=== PATIENT | male | born 1965 | race Caucasian/White ===

== ENCOUNTER 2021-12-20 06:46 | Outpatient (REF) | payer OTHER, SELFPAY ==
[2021-12-20 06:52] LABS: MANUAL DIFF FLAG NO
[2021-12-20 07:19] LABS: Basophils Percent Auto 0.4 % (0-2); Eosinophils Absolute Auto 0.2 X10*3/uL (0.0-0.4); Eosinophils Percent Auto 2.6 % (0-4); Hematocrit 42.8 % (42.0-52.0); Hemoglobin 15.1 g/dl (14.0-18.0); Imm Gran Abs Auto 0.03 X10*3/uL (0.00-0.03); Imm Gran Pct Auto 0.4 % (0.0-0.4); Lymphocytes Absolute Auto 2.2 X10*3/uL (1.2-4.9); Lymphocytes Percent Auto 31.9 % (20-40); Mean Corpuscular HGB Conc 35.3 g/dl (31.0-36.0); Mean Corpuscular Volume 90.7 fL (80.0-98.0); Monocytes Absolute Auto 0.5 X10*3/uL (0.1-1.2); Monocytes Percent Auto 7.6 % (2-11); Neutrophils Percent Auto 57.1 % (45-73); Platelet Count 141 X10*3/uL (160-400); Red Blood Count 4.72 X10*6/uL (4.60-5.80); Red Cell Distribution Width 11.9 % (11.0-16.0)
[2021-12-20 07:45] LABS: Alanine Aminotransferase 57 U/L (0-40); Alkaline Phosphatase 59 U/L (39-117); Anion Gap 12 (12-20); Aspartate Amino Transferase 43 U/L (5-37); Bilirubin Total 0.3 mg/dL (0.0-1.0); Blood Urea Nitrogen 15 mg/dL (9-16); Calcium 8.9 mg/dL (8.4-10.2); Carbon Dioxide 30 mmol/L (22-29); Chloride 102 mmol/L (96-108); Cholesterol 180 mg/dL; Estimated Glomerular Filt Rate > 60; Glucose Fasting 115 mg/dL (60-99); HDL Cholesterol 44 mg/dL; LDL Cholesterol Calculated 110 mg/dl; Potassium 3.3 mmol/L (3.3-5.1); Sodium 141 mmol/L (135-145); Total Protein 6.8 g/dL (6.5-8.0); Triglycerides 133 mg/dL
[2021-12-20 08:06] LABS: Thyroid Stimulating Hormone 3.25 uIU/mL (0.32-4.0); Vitamin D 25-OH Total 33.4 ng/mL (>30)
== END 2021-12-20 06:47 | disposition home or self-care (01) ==
LOC: HO.LAB 06:46
PROVIDERS: PCP Internal Medicine; Visit Provider Internal Medicine
DX: Z00.00 Encounter for general adult medical examination without abnormal findings (principal); Z12.5 Encounter for screening for malignant neoplasm of prostate; K22.4 Dyskinesia of esophagus; R00.0 Tachycardia, unspecified; E78.00 Pure hypercholesterolemia, unspecified; E66.09 Other obesity due to excess calories; Z68.37 Body mass index [BMI] 37.0-37.9, adult
CPT/HCPCS: 36415; 80053; 80061; 82306; 84153; 84443; 85025

== ENCOUNTER 2022-01-21 10:05 | Outpatient (REF) | payer OTHER, SELFPAY ==
[2022-01-21 11:32] LABS: Alanine Aminotransferase 41 U/L (0-40); Albumin Level 4.1 g/dL (3.5-5.0); Alkaline Phosphatase 66 U/L (39-117); Anion Gap 14 (12-20); Aspartate Amino Transferase 29 U/L (5-37); Bilirubin Direct 0.2 mg/dL (0.0-0.5); Bilirubin Total 0.4 mg/dL (0.0-1.0); Blood Urea Nitrogen 11 mg/dL (9-16); C Reactive Protein 0.47 mg/dL (< or = 0.50); Calcium 9.4 mg/dL (8.4-10.2); Carbon Dioxide 30 mmol/L (22-29); Chloride 101 mmol/L (96-108); Estimated Glomerular Filt Rate > 60; Glucose Random 130 mg/dL (60-115); Potassium 3.6 mmol/L (3.3-5.1); Sodium 141 mmol/L (135-145)
[2022-01-21 11:39] LABS: Erythrocyte Sedimentation Rate 9 MM/HR (0-15)
== END 2022-01-21 10:06 | disposition home or self-care (01) ==
LOC: HO.LAB 10:05
PROVIDERS: PCP Internal Medicine; Visit Provider Internal Medicine
DX: R61 Generalized hyperhidrosis (principal)
CPT/HCPCS: 80048; 80076; 85652; 86140

== ENCOUNTER 2023-01-31 06:55 | Outpatient (REF) | payer OTHER, SELFPAY ==
[2023-01-31 07:07] LABS: MANUAL DIFF FLAG NO
[2023-01-31 07:14] LABS: Basophils Percent Auto 0.3 % (0-2); Eosinophils Absolute Auto 0.2 X10*3/uL (0.0-0.4); Eosinophils Percent Auto 2.6 % (0-4); Hematocrit 44.9 % (42.0-52.0); Hemoglobin 15.7 g/dl (14.0-18.0); Imm Gran Abs Auto 0.04 X10*3/uL (0.00-0.03); Imm Gran Pct Auto 0.5 % (0.0-0.4); Lymphocytes Absolute Auto 2.3 X10*3/uL (1.2-4.9); Lymphocytes Percent Auto 29.9 % (20-40); Mean Corpuscular Hemoglobin 31.5 pg (27.0-33.0); Mean Corpuscular Volume 90.2 fL (80.0-98.0); Mean Platelet Volume 8.9 fL (9.4-12.4); Monocytes Absolute Auto 0.5 X10*3/uL (0.1-1.2); Monocytes Percent Auto 6.7 % (2-11); Neutrophils Absolute Auto 4.5 x10*3/uL (2.0-8.3); Platelet Count 147 X10*3/uL (160-400); Red Blood Count 4.98 X10*6/uL (4.60-5.80); Red Cell Distribution Width 12.2 % (11.0-16.0); White Blood Count 7.6 X10*3/uL (4.8-10.8)
[2023-01-31 07:37] LABS: Alanine Aminotransferase 65 U/L (0-40); Alkaline Phosphatase 59 U/L (39-117); Anion Gap 17 (12-20); Aspartate Amino Transferase 35 U/L (5-37); Bilirubin Total 0.4 mg/dL (0.0-1.0); Blood Urea Nitrogen 14 mg/dL (9-16); Calcium 9.6 mg/dL (8.4-10.2); Carbon Dioxide 26 mmol/L (22-29); Chloride 104 mmol/L (96-108); Cholesterol 168 mg/dL (<200); Estimated Glomerular Filt Rate > 60; Glucose Fasting 121 mg/dL (60-99); HDL Cholesterol 41 mg/dL (>40); LDL Cholesterol Calculated 103 mg/dL (<100); Potassium 3.7 mmol/L (3.3-5.1); Sodium 143 mmol/L (135-145); Triglycerides 121 mg/dL (<150)
[2023-01-31 07:53] LABS: Thyroid Stimulating Hormone 4.98 uIU/mL (0.32-4.0); Vitamin D 25-OH Total 44.8 ng/mL (>30)
[2023-01-31 07:54] LABS: Prostate Specific Antigen 0.49 ng/mL (<0.05-4.0)
== END 2023-01-31 06:56 | disposition home or self-care (01) ==
LOC: HO.LAB 06:55
PROVIDERS: PCP Internal Medicine; Visit Provider Internal Medicine
DX: Z00.00 Encounter for general adult medical examination without abnormal findings (principal); Z12.5 Encounter for screening for malignant neoplasm of prostate; R00.0 Tachycardia, unspecified; E78.00 Pure hypercholesterolemia, unspecified; E66.09 Other obesity due to excess calories; K22.4 Dyskinesia of esophagus; I10 Essential (primary) hypertension
CPT/HCPCS: 36415; 80053; 80061; 82306; 84153; 84443; 85025

== ENCOUNTER 2023-06-28 08:10 | Outpatient (REF) | payer OTHER, SELFPAY ==
[2023-06-28 09:44] LABS: Alanine Aminotransferase 57 U/L (0-40); Alkaline Phosphatase 62 U/L (39-117); Anion Gap 12 (12-20); Aspartate Amino Transferase 38 U/L (5-37); Bilirubin Total 0.3 mg/dL (0.0-1.0); Blood Urea Nitrogen 12 mg/dL (9-16); Carbon Dioxide 30 mmol/L (22-29); Chloride 105 mmol/L (96-108); Estimated Glomerular Filt Rate > 60; Glucose Random 105 mg/dL (60-115); Potassium 3.6 mmol/L (3.3-5.1); Sodium 143 mmol/L (135-145); Total Protein 7.1 g/dL (6.5-8.0)
[2023-06-28 10:01] LABS: Thyroid Stimulating Hormone 3.73 uIU/mL (0.32-4.0)
== END 2023-06-28 08:11 | disposition home or self-care (01) ==
LOC: HO.LAB 08:10
PROVIDERS: PCP Internal Medicine; Visit Provider Internal Medicine
DX: K58.1 Irritable bowel syndrome with constipation (principal)
CPT/HCPCS: 36415; 80053; 84443

== ENCOUNTER 2023-07-21 11:42 | Emergency (ER) | payer OTHER, SELFPAY ==
--- NOTE | ~2023-07-21 | XR_ITS ---
EXAMINATION: XR CHEST CLINICAL INFORMATION: Palpitations COMPARISON: 07/09/2019 TECHNIQUE: 2 views of the chest were obtained. FINDINGS: No significant abnormality is noted involving the heart, lungs, mediastinum, bony thorax or soft tissues. Mild degenerative changes are again seen in the spine. XR/XR chest 2V IMPRESSION: Unremarkable examination.
[2023-07-21 12:02] VITALS: BP 158/83; PULSE 65; RESP 18; TEMP 36.6; O2SAT 96; BMI 33.7
--- NOTE | 2023-07-21 12:05 | ED_ITS ---
HPI - General Adult General Chief complaint: General Medical Stated complaint: Sent by PCP - high BP Time Seen by Provider: 07/21/23 12:48 Source: patient and family Mode of arrival: ambulatory Limitations: no limitations History of Present Illness HPI narrative: Patient is a 58 year old male with a history of HTN and HLD presenting to the ED after an isolated incident of palpitations which lasted 20 minutes. The patient reported the incident occurred at around 3 am and endorsed associated dizziness/lightheadedness and SOB during the incident. Patient denies pain but describes the feeling a fluttering . Patient reports drinking about 4-6 beers with his friends the evening before the palpitations started. Denies visual disturbances, headaches, fever/chills, abdominal pain, chest pain, urinary symptoms, and changes to bowel habits. Patient reports hes been compliant with all of his meds, denies sick contacts, recent travel, and recent ABX use. MD complaint: Palpitations Onset (ago): hour(s) (10) Location: chest Radiation: non-radiation Severity: mild Severity scale (1-10): 2 Quality: other (pounding) Pain Consistency: now resolved Relieving factors: none Exacerbating factors: none Associated symptoms: shortness of breath Treatments prior to arrival: none Related Data Allergies Allergy/AdvReac Type Severity Reaction Status Date / Time SEASONAL ALLERGIES Allergy Mild WATERY Uncoded 07/21/23 12:01 EYES,NASAL CONGESTION.SNEEZING Review of Systems 2 Review of Systems: Yes all other systems are reviewed and are negative Constitutional: Constitutional: Reports no additional constitutional complaints, Denies body ache(s), Denies chills, Denies fatigue, Denies fever(s) and Denies headache(s) Eyes: Eyes: Reports no additional eye complaints, Denies blurry vision, Denies change in vision, Denies diplopia and Denies loss of vision ENT: Denies Normal hearing present and Denies headache(s) Cardiovascular: Cardiovascular: Reports no additional cardiovascular complaints, Denies chest pain, Reports leg edema, Reports lightheadedness, Denies Loss of Consciousness, Reports palpitations and Reports dyspnea Respiratory: Respiratory: Reports no additional respiratory complaints, Denies hemoptysis and Reports dyspnea Gastrointestinal: Gastrointestinal: Reports no additional gastrointestinal complaints, Denies abdominal pain, Denies melena, Denies hematochezia and Denies coffee ground emesis Genitourinary: Genitourinary: Reports no additional male genitourinary complaints, Denies hematuria, Denies difficulty urinating and Denies dysuria Musculoskeletal: Musculoskeletal: Reports no additional musculoskeletal complaints, Denies back pain, Denies myalgias, Denies numbness and Denies tingling Neurologic: Denies Normal hearing present, Denies headache(s), Denies loss of vision, Denies numbness and Denies tingling Psychiatric: Psychiatric: Reports no additional psychiatric complaints Endocrine: Endocrine: Denies fatigue and Reports palpitations Hematologic/Lymphatic: Hematologic/Lymphatic: Reports no additional hematologic/lymphatic complaints Allergic/Immunologic: Allergic/Immunologic: Reports no additional allergic/immunologic complaints [facility] Past Medical History Attestation statement: The following information was validated with the patient. Source: old records reviewed and nursing notes reviewed Social History Social History Advance Directives: No Physical Exam ED Vital Signs: Vital Signs - 24 hr 07/21/23 12:02 07/21/23 15:15 07/21/23 15:17 Temperature 97.8 F 97.6 F 97.6 F Pulse Rate 65 50 50 Respiratory Rate 18 16 16 Blood Pressure 158/83 H 119/69 133/73 Pulse Oximetry 96 97 97 Oxygen Delivery Method Room Air Room Air 07/21/23 15:24 07/21/23 15:24 07/21/23 15:25 Temperature Pulse Rate 55 61 59 Respiratory Rate Blood Pressure 145/80 H 155/90 H 143/81 H Pulse Oximetry Oxygen Delivery Method BMI result Body Mass Index 33.7 VSS Appearance: Alert.? Oriented X3.? No acute distress.? Head: Normocephalic, atraumatic, no step-offs or deformities Eyes: Pupils equal, round and reactive to light.? Neck: Normal inspection.? Neck supple.? CVS: Normal heart rate and rhythm.? Pulses normal.? Respiratory: No respiratory distress.? Breath sounds normal.? Abdomen: Soft and nontender.? Skin: Skin warm and dry.? Normal skin color.? Normal skin turgor.? Extremities: + 1 + pitting from knee down to b/l LE.? No calf ttp. 5/5 strength to bilateral upper and lower extremities Neuro: Oriented X 3.? No motor deficit.? No sensory deficit. CN 2-12 intact Const General: cooperative, no acute distress, alert and awake Nutritional Appearance: obese Orientation/consciousness: patient oriented x3 Limitations: no limitations HENMT Head: Yes normal to inspection Ears: hearing grossly normal bilaterally General nose exam: Normal external nose present Face and sinus: Yes normal facial exam Eyes General: appearance normal, both eyes and all related structures Pupils: Equal, round and reactive pupils present Neck Neck: Yes normal visual inspection Resp Effort & Inspection: normal respiratory effort and able to speak in complete sentences Auscultation: clear to auscultation bilaterally Cardio Jugular venous distension: no JVD Palpation: normal PMI Rate: regular rate Rhythm: regular rhythm Neuro General: patient oriented x3 Cranial nerves: Yes Equal, round and reactive pupils present and No Normal hearing present Cognition (Neuro): normal cognition Coordination: [id number] test normal NIH Stroke Scale Level of Consciousness Questions: Answers both questions correctly Level of Consciousness Commands: Performs both tasks correctly Best Gaze: Normal Visual: No visual loss Facial Palsy: Normal Motor Arm (Right): No drift Motor Arm (Left): No drift Limb Ataxia: Absent Best Language: No aphasia Course Course Course Narrative: RME performed by Suzan Morel PA-C. Patient is a 58 year old assigned male at presenting to the emergency department with now resolved heart racing. Detailed physical exam and review of systems are deferred to the primary school teacher librarian. Labs, imaging, and swabs ordered. Patient placed back in the waiting room pending room availability and results. Reevaluation(s) Reevaluation #1: CBC unremarkable. Chemistry no acute findings requiring intervention. Slightly elevated transaminases at baseline. Negative troponin, and BNP. EKG nonischemic. D-dimer negative. Flu/COVID/RSV negative. Second trop pending Ortho static vital signs pendign Time: 15:18 Medical Decision Making Medical Decision Making [facility] Narrative: 1252 58 year old male presents w/ palpitations, and dizziness as aswell as high blood pressure since yesterday. PE- benign hx and pe concerning for possible anxiety vs dysrythmia vs electrolyte abnormalities. Unlikely acs, pe, dissection, ards, stroke, posterior stroke. Unlikely hypertensive urgency or emergency. Plan- labs, imaging viral test. Differential Diagnosis Differential Diagnoses: The differential diagnosis associated with the presentation includes hx and pe concerning for possible anxiety vs dysrythmia vs electrolyte abnormalities. Unlikely acs, pe, dissection, ards, stroke, posterior stroke. Unlikely hypertensive urgency or emergency. Admission/Observation Consideration of admission/observation: Escalation of care including admission/observation considered Lab Data MDM Lab Attestation statement: I reviewed the patient's lab results. 07/21/23 13:09 07/21/23 13:09 Labs: Lab Results 07/21/23 07/21/23 Range/Units 13:09 15:21 WBC 6.8 (4.8-10.8) X10*3/uL RBC 4.88 (4.60-5.80) X10*6/uL Hgb 15.3 (14.0-18.0) g/dl Hct 43.3 (42.0-52.0) % MCV 88.7 (80.0-98.0) fL MCH 31.4 (27.0-33.0) pg MCHC 35.3 (31.0-36.0) g/dl RDW 12.3 (11.0-16.0) % Plt Count 127 L (160-400) X10*3/uL MPV 8.8 L (9.4-12.4) fL Immature Gran % (Auto) 0.3 (0.0-0.4) % Neut % (Auto) 64.7 (45-73) % Lymph % (Auto) 25.4 (20-40) % [place] % (Auto) 7.8 (2-11) % Eos % (Auto) 1.5 (0-4) % Baso % (Auto) 0.3 (0-2) % Lymph # (Auto) 1.7 (1.2-4.9) X10*3/uL [place] # (Auto) 0.5 (0.1-1.2) X10*3/uL Eos # (Auto) 0.1 (0.0-0.4) X10*3/uL Baso # (Auto) 0.0 (0.0-0.2) X10*3/uL Abs Immat Gran (auto) 0.02 (0.00-0.03) X10*3/uL Absolute Neuts (auto) 4.4 (2.0-8.3) x10*3/uL Absolute Nucleated RBC 0.000 (0.0-0.012) X10*3/uL Nucleated RBC % (auto) 0.0 (0.0-0.2) /100WBC D-Dimer High Sensitivty < 150 NG/ML Sodium 142 (135-145) mmol/L Potassium 3.4 (3.3-5.1) mmol/L Chloride 102 (96-108) mmol/L Carbon Dioxide 32 H (22-29) mmol/L Anion Gap 11 L (12-20) BUN 13 (9-16) mg/dL Creatinine 0.89 (0.5-1.4) mg/dL Estim Creat Clear Calc 127.5 Estimated GFR > 60 Random Glucose 111 (60-115) mg/dL Calcium 9.4 (8.4-10.2) mg/dL Magnesium 2.0 (1.6-2.6) mg/dL Total Bilirubin 0.6 (0.0-1.0) mg/dL AST 40 H (5-37) U/L ALT 58 H (0-40) U/L Alkaline Phosphatase 65 (39-117) U/L Troponin I High Sens < 2.7 < 2.7 (<3.5-35.0) ng/L B-Natriuretic Peptide < 10 (<100) pg/mL Total Protein 7.1 (6.5-8.0) g/dL Albumin 3.9 (3.5-5.0) g/dL Urine Color Yellow Urine Appearance Clear Urine pH 7.5 (5.0-9.0) Ur Specific [place] 1.020 (1.005-1.025) Urine Protein Negative (Neg-Trace) mg/dL Urine Glucose (UA) Negative (Negative) mg/dL Urine Ketones Negative (Negative) mg/dL Urine Blood Negative (Negative) Urine Nitrite Negative (Negative) Ur Leukocyte Esterase Negative (Negative) Influenza Type A (PCR) NEGATIVE (Negative) Influenza Type B (PCR) NEGATIVE (Negative) RSV RNA Qual (PCR) NEGATIVE (Negative) SARS-CoV-2 RNA (RT-PCR) NEGATIVE (Negative) Independent Interpretation I performed an independent interpretation of an: EKG (Ventricular rate of 58, CT normal, QRS normal, QT/QTC normal. EKG with sinus bradycardia incomplete right bundle-branch block,) and Plain X-Ray (XR/XR chest 2V IMPRESSION: Unremarkable examination. ) Radiology Impression Discussion of test interpretation with radiology: I have reviewed the radiologist's reading. Independent Historian Clinical information obtained from an independent historian. History obtained from or confirmed by: Other (son ) External Record Review External record reviewed: Inpatient record, Office record, Outpatient record, Prior outpatient labs, Prior outpatient radiology, Primary care record and Outside ED record Chronic Conditions Patient?s care impacted by: Other (HTN, HLD ) Critical Care Time Critical Care Time Critical Care Time: Yes Total Critical Care Time: 35 Attestation: I attest to this time spent taking care of the patient, obtaining history, physical, reviewing labs, imaging Discharge Plan Discharge Clinical Impression: Chest pain, Heart palpitations, Bradycardia Patient Disposition: Home, Self-Care Instructions: Chest Pain (DC), Heart Palpitations (ED) Additional Instructions: Take your medications as prescribed. If you were prescribed antibiotics today, it is important that you take your medication to their entirety, do not skip any doses, do not finish them early. Follow-up with your primary care provider this week. Return to the emergency department with new or worsening symptoms. Such as fevers, chills, chest pain, shortness of breath, nausea, vomiting, dizziness, headache, vision changes, lethargy In case of emergency call 911 Please follow-up with cardiology. Referrals: [facility] – [place] Cardiovascular Services [Provider Group] - 1 day [place] Church DO [Primary Care Provider] - 2 days Stand Alone Forms: Work/School Release
--- NOTE | 2023-07-21 12:06 | ECG_ITS ---
Test Reason : PALPITATIONS Blood Pressure : / mmHG Vent. Rate : 058 BPM Atrial Rate : 058 BPM P-R Int : 178 ms QRS Dur : 100 ms QT Int : 448 ms P-R-T Axes : 039 -26 047 degrees QTc Int : 439 ms Artifact in tracing Sinus bradycardia Incomplete right bundle branch block Minimal voltage criteria for LVH, may be normal variant ( R in aVL ) Nonspecific T wave abnormality Abnormal ECG When compared with ECG of 30-SEP-2019 13:55, No significant changes seen Referred By: Suzan Morel Electronically Signed By:SARIAH TEJADA
[2023-07-21 13:18] LABS: MANUAL DIFF FLAG NO
[2023-07-21 13:19] LABS: Basophils Percent Auto 0.3 % (0-2); Eosinophils Absolute Auto 0.1 X10*3/uL (0.0-0.4); Eosinophils Percent Auto 1.5 % (0-4); Hematocrit 43.3 % (42.0-52.0); Hemoglobin 15.3 g/dl (14.0-18.0); Imm Gran Abs Auto 0.02 X10*3/uL (0.00-0.03); Imm Gran Pct Auto 0.3 % (0.0-0.4); Lymphocytes Absolute Auto 1.7 X10*3/uL (1.2-4.9); Lymphocytes Percent Auto 25.4 % (20-40); Mean Corpuscular HGB Conc 35.3 g/dl (31.0-36.0); Mean Corpuscular Hemoglobin 31.4 pg (27.0-33.0); Mean Corpuscular Volume 88.7 fL (80.0-98.0); Mean Platelet Volume 8.8 fL (9.4-12.4); Monocytes Absolute Auto 0.5 X10*3/uL (0.1-1.2); Monocytes Percent Auto 7.8 % (2-11); Neutrophils Absolute Auto 4.4 x10*3/uL (2.0-8.3); Neutrophils Percent Auto 64.7 % (45-73); Platelet Count 127 X10*3/uL (160-400); Red Blood Count 4.88 X10*6/uL (4.60-5.80); Red Cell Distribution Width 12.3 % (11.0-16.0); White Blood Count 6.8 X10*3/uL (4.8-10.8)
[2023-07-21 13:29] LABS: D Dimer High Sensitivity < 150 NG/ML
[2023-07-21 13:32] LABS: Alanine Aminotransferase 58 U/L (0-40); Albumin Level 3.9 g/dL (3.5-5.0); Alkaline Phosphatase 65 U/L (39-117); Anion Gap 11 (12-20); Aspartate Amino Transferase 40 U/L (5-37); Bilirubin Total 0.6 mg/dL (0.0-1.0); Blood Urea Nitrogen 13 mg/dL (9-16); Calcium 9.4 mg/dL (8.4-10.2); Carbon Dioxide 32 mmol/L (22-29); Chloride 102 mmol/L (96-108); Creatinine Clr Calc Pharmacy 127.5; Estimated Glomerular Filt Rate > 60; Glucose Random 111 mg/dL (60-115); Potassium 3.4 mmol/L (3.3-5.1); Sodium 142 mmol/L (135-145); Total Protein 7.1 g/dL (6.5-8.0)
[2023-07-21 13:41] LABS: Troponin-I High Sensitivity < 2.7 ng/L (<3.5-35.0)
[2023-07-21 14:05] LABS: Influenza A PCR NEGATIVE (Negative); Influenza B PCR NEGATIVE (Negative); Resp Syncy Virus RNA Qual PCR NEGATIVE (Negative); SARS COV2 PCR INHOUSE NEGATIVE (Negative)
[2023-07-21 14:36] LABS: B Type Natriuretic Peptide < 10 pg/mL (<100)
[2023-07-21 15:15] VITALS: BP 119/69; PULSE 50; RESP 16; TEMP 36.4; O2SAT 97
[2023-07-21 15:17] VITALS: BP 133/73; PULSE 50; RESP 16; TEMP 36.4; O2SAT 97
[2023-07-21 15:24] VITALS: BP 145/80; BP 155/90; PULSE 55; PULSE 61
[2023-07-21 15:25] VITALS: BP 143/81; PULSE 59
[2023-07-21 15:29] LABS: Appearance Urine Clear; Color Urine Yellow; Glucose Urine UA Negative (Negative); Leukocyte Esterase Urine Negative (Negative); Nitrite Urine Negative (Negative); PH 7.5 (5.0-9.0); Urine Blood Negative (Negative); Urine Ketones Negative (Negative); Urine Protein Negative (Neg-Trace)
[2023-07-21 15:55] LABS: Troponin-I High Sensitivity < 2.7 ng/L (<3.5-35.0)
[2023-07-21 16:14] VITALS: BP 143/81; PULSE 59; RESP 18; TEMP 36.4; O2SAT 98
== END 2023-07-21 16:15 | disposition home or self-care (01) ==
PROVIDERS: Physician Assistant; Physician Assistant Medical; Emergency Provider Emergency Medicine; PCP Internal Medicine
DX: R00.2 Palpitations (principal); R07.9 Chest pain, unspecified; R00.1 Bradycardia, unspecified; I10 Essential (primary) hypertension; Z11.52 Encounter for screening for COVID-19; Z20.828 Contact with and (suspected) exposure to other viral communicable diseases
CPT/HCPCS: 0241U; 36415; 71046; 80053; 81003; 83735; 83880; 84484; 85025; 85379; 93005; 99283; 99284

== ENCOUNTER → 2023-07-21 12:06 | Outpatient (BNV) | payer OTHER, SELFPAY | PROVIDERS: Emergency Provider Emergency Medicine; PCP Internal Medicine; Visit Provider Internal Medicine | DX: R00.2 Palpitations (principal) | CPT/HCPCS: 93010 ==

== ENCOUNTER 2023-07-25 13:55 | Outpatient (AMB) | payer OTHER, SELFPAY ==
[2023-07-25 14:03] VITALS: BP 130/78; PULSE 76; BMI 29.0
--- NOTE | 2023-07-25 14:03 | A.OFFVIS_ITS ---
Intake Vital Signs 07/25/23 14:03 Height 6 ft 3 in Weight 231 lb 14.821 oz BMI 29.0 BP 130/78 Blood Pressure Location Lt brachial Position Sitting Pulse 76 Intake Visit Reasons: S/P ED; Sxs w palpitations. Holter? HS Intake Note: PT had SOB the day before but no palpitations or chest pain Allergies SEASONAL ALLERGIES Allergy (Mild, Uncoded 07/25/23 14:17) WATERY EYES,NASAL CONGESTION.SNEEZING Medication List - Last Reconciled 07/25/23 by Ana Hanson NP diclofenac sodium 75 mg PO BID dicyclomine 20 mg PO DAILY diphenhydramine HCl (Benadryl) 25 mg PO TID PRN hydrochlorothiazide 50 mg PO DAILY metoprolol succinate ER 100 mg PO DAILY simvastatin 20 mg PO BEDTIME HPI HPI Comments History of Present Illness Details 58-year-old male presents today for a ne w patient visit. He recently went to the emergency room due to waking up and having palpitations and noted to have a high blood pressure of 170/90 checked by his son who is a nurse. He reports he woke up at felt his heart racing, felt lightheaded, and sweaty. Episode lasted about 15 minutes and resolved. He checked his blood pressure periodically throughout the day and it was 150 systolic. He called his PCPs office which recommended for him to be see at the ED. He was bradycardic at 50 bpm while in the emergecy room. He reports many years ago he had palpitations but those resolved. He has a RAJESH for tachycardia prior that showed Sinus Rhythm with occasional PVCs. He denies any chest pains, syncope, or shortness of breath. No other episodes of dizziness other than that episode. He reports no significant history for himself or family cardiac history. He [facility] Medical History (Updated 07/25/23 @ 15:44 by Ana Hanson NP) GERD (gastroesophageal reflux disease) Hypothyroid Hypercholesteremia Review of Systems Const Denies weakness ENT Denies dizziness Card Denies chest pain, Denies chest pain with activity, Denies syncope, Denies rapid heart rate, Denies pedal edema, Denies edema, Denies leg edema, Denies lightheadedness, Denies palpitations, Denies dyspnea, Denies dyspnea on exertion and Denies orthopnea Resp Denies cough, Denies dyspnea and Denies dyspnea on exertion GI Denies hematochezia and Denies change in stool character Musc Denies abnormal gait, Denies muscle cramps, Denies muscle weakness, Denies numbness, Denies radiating pain into limb and Denies tingling Neuro Denies abnormal gait, Denies dizziness, Denies syncope, Denies numbness, Denies tingling and Denies weakness Endo Denies palpitations Physical Exam Vital Signs: Last Vital Signs Pulse 76 07/25/23 14:03 BP 130/78 07/25/23 14:03 BMI result Body Mass Index 29.0 Const General: healthy appearing and no acute distress Orientation/consciousness: patient oriented x3 HEENT Head: Yes normal to inspection Eyes General: appearance normal, both eyes and all related structures Neck Neck: Yes normal visual inspection Chest Chest palpation & inspection: normal inspection of the chest Resp Effort & Inspection: normal respiratory effort Auscultation: clear to auscultation bilaterally Cardio Jugular venous distension: no JVD Palpation: normal PMI Rate: regular rate Rhythm: regular rhythm Heart sounds: S1 normal heart sound present, S2 normal heart sound present, no click, no gallops, no murmurs and no rubs GI Inspection: Yes normal to inspection Palpation (GI): Soft to palpation Skin General skin exam: no rashes or lesions noted Neuro General: patient oriented x3 Extrem General: Yes normal to inspection Psych Appearance: grossly normal Assessment & Plan Assessment & Plan (1) Heart palpitations: Code(s): R00.2 - Palpitations (2) Hypertension: Code(s): I10 - Essential (primary) hypertension Plan Will order echocardiogram to assess for structural changes. Will get holter monitor to assess for arrhtyhmias and assess average heart rates. Heart rate and blood pressure acceptable today. TSH in the ED was 3.73. Hgb and Hct were within normal limis in ED also. His PCP follows thyroid levels. Avoidance of stimulants such as coffee, tea, chocolate. Orders: Orders ECG 3 day holter monitor Today R00.2 - Palpitations CA echo transthoracic complete Today I10 - Essential (primary) hypertension Coding Level of Care Code New Pt Level 3 (31031) Diagnoses Heart palpitations R00.2 Hypertension I10
== END 2023-07-25 14:32 | disposition home or self-care (01) ==
PROVIDERS: PCP Internal Medicine; Visit Provider Nurse Practitioner
DX: R00.2 Palpitations (principal); I10 Essential (primary) hypertension
CPT/HCPCS: 99203

== ENCOUNTER → 2023-07-25 13:55 | Outpatient (BNVA) | payer OTHER, SELFPAY | PROVIDERS: PCP Internal Medicine; Visit Provider Nurse Practitioner ==

== ENCOUNTER → 2023-08-14 13:53 | Outpatient (REF) | payer OTHER, SELFPAY ==
--- NOTE | 2023-08-14 13:57 | CA_ITS ---
Transthoracic Echocardiogram Patient (Last, First, Middle): Ponce Chen R Gender: Male Date of : 1965 Age: 58 Procedure Date: 08/14/2023 Procedure Type: Transthoracic Echocardiogram Location: OP Height: 190.5 cm Weight: 120.2 kg BSA: 2.47 m2 Heart Rate: bpm BP: 148 / 80 mmHg Market Research Analyst: TO Referring MD: Ana Hanson NP Symptoms: I10 - Essential (primary) hypertension Study Quality: Fair/Contrast Conclusions: - Normal left ventricular size, thickness, systolic function, and wall motion. The visually estimated ejection fraction is between 60-65%. - Mildly increased right ventricular cavity size. There is normal right ventricular systolic function. - The right atrium is mildly dilated. - There is mild dilatation of the sinuses of Valsalva measuring 4.17 cm and mild dilatation of the ascending aorta measuring 3.80 cm. Findings Procedure Information Contrast agent, definity, is being given per protocol without apparent complications. Left Ventricle Normal left ventricular size, thickness, systolic function, and wall motion. The visually estimated ejection fraction is between 60-65%. Abnormal diastolic function is noted. Spectral Doppler is indicative of an impaired relaxation filling pattern. E/E prime ratio is between 8 and 15 consistent with indeterminate filling pressures. Right Ventricle Mildly increased right ventricular cavity size. There is normal right ventricular systolic function. Atria The left atrium is normal in size. The right atrium is mildly dilated. Aortic Valve Normal aortic valve structure and function. There is no aortic valve stenosis. There is no aortic valve regurgitation. Mitral Valve The mitral valve appears normal. There is no mitral valve regurgitation. There is no mitral valve stenosis. Pulmonic Valve The pulmonic valve is likely normal. Tricuspid Valve Normal tricuspid valve structure. There is trace tricuspid valve regurgitation. Normal right atrial pressure. There is no evidence of pulmonary hypertension. Great Vessels There is mild dilatation of the sinuses of Valsalva measuring 4.17 cm and mild dilatation of the ascending aorta measuring 3.80 cm. The visualized portions of the pulmonary artery and branches are normal. Venous The inferior vena cava is normal in size and collapses greater than 50% with inspiration. Pericardium/Pleural There is no evidence of pericardial effusion. Prior Study Comparison Changes noted compared to prior study dated: 08/02/2019. RV size mildly dilated. Mild dilation of sinus of valsalva and ascending aorta. Measurements 2D Linear Measurements IVSd: 1.00 0.6-0.9/0.6-1.0 cm LVIDd: 5.25 3.9-5.3/4.2-5.9 cm LVIDd Index: 2.13 2.4-3.2/2.2-3.1 cm/m2 LVIDs: 3.40 2.0-3.6 cm LVPWd: 1.03 0.7-1.1 cm LA Diam: 3.60 2.7-3.8/3.0-4.0 cm LAIDs Index: 1.46 1.5-2.3 cm/m2 LV Mass: 250.11 67-162/88-224 g LV Mass Index: 101.26 43-95/49-115 g/m2 LVOT Diam: 2.20 3.0+(-)1.3 cm 2D Systolic Function EF 4C: 62.40 >55% EF 2C: 67.80 >55% EF BiP: 64.80 >55% Mitral Valve MV Pk E: 0.88 MV PK A: 0.79 MV Decel Time: 186.00 E/A: 1.10 E'Lateral: 7.18 E'Medial: 5.55 E/E' Med: 15.90 E/E' Lat: 12.30 PHT: 54.00 MVA PHT: 4.07 Decel [place]: 4.75 Aortic Valve AoV Pk Lakhwinder: 1.59 AoV Mn Lakhwinder: 1.00 AoV VTI: 0.31 AoV Pk Grad: 10.00 Aov Mn Grad: 5.00 JUSTINE Cont.VTI: 3.56 LVOT LVOT Pk Lakhwinder: 1.26 LVOT Mn Lakhwinder: 0.75 LVOT VTI: 0.29 LVOT Pk Grad: 6.00 LVOT Mn Grad: 3.00 LVOT Diam: 2.20 LVOT Area: 3.80 Diastolic Function MV Pk E: 0.88 MV Pk A: 0.79 E/A: 1.10 E'Medial: 5.55 E/E' Med: 15.90 E' Laterial: 7.18 E/E' Lat: 12.30 Right Ventricle TAPSE (mm): 27.20 TVS' Lakhwinder: 13.50 Tricuspid Valve TR Pk Lakhwinder: 2.01 TR Pk Grad: 16.00 RA Press: 3.00 RVSP: 19.00 Great Vessels Aorta Sinus of Valsalva: 4.17 2.0-3.[address] [place]: 3.07 1.7-3.4 cm Ao Asc: 3.80 2.1-3.4 cm Ao Arch: 3.20 Updated in Other Vendor System with Status of Final Paco Warren MD electronically signed on 08/14/2023 7:39:21 PM with status of Final
--- NOTE | 2023-08-14 13:57 | HM_ITS ---
Conclusion: 1. Patient was monitored for total period of 3 days 2. Baseline was normal sinus rhythm with average heart of 64 beats per minute 3. No significant arrhythmias or pauses noted 4. No patient reported events MTDD
== END ==
LOC: HO.CARD 13:53
PROVIDERS: PCP Internal Medicine; Visit Provider Nurse Practitioner
DX: R00.2 Palpitations (principal); I10 Essential (primary) hypertension
CPT/HCPCS: 93242; 93306; Q9957

== ENCOUNTER → 2023-08-14 13:57 | Outpatient (BNV) | payer OTHER, SELFPAY | PROVIDERS: PCP Internal Medicine; Visit Provider Internal Medicine Cardiovascular Disease | DX: R00.1 Bradycardia, unspecified (principal) | CPT/HCPCS: 93244; 93306 ==

== ENCOUNTER 2024-03-24 07:56 | Outpatient (REF) | payer BC, SELFPAY | END 2024-03-24 07:57 | disposition home or self-care (01) | LOC: HO.HOSX 07:56 | DX: M79.641 Pain in right hand (principal) | CPT/HCPCS: 73130 ==

== ENCOUNTER 2024-03-24 14:56 | Outpatient (AMB) | payer BC, SELFPAY ==
--- NOTE | 2024-03-24 15:04 | MHC.OFFVIS ---
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 Pt states his thumb started hurting a few months ago with no known injury. Pt denies any locking, numbness, or tingling in his hand or fingers. Pt denies any previous surgeries or injections in his hand or fingers. Allergies SEASONAL ALLERGIES Allergy (Mild, Uncoded 03/24/24 15:04) WATERY EYES,NASAL CONGESTION.SNEEZING HPI Comments Details: Patient is a 59-year-old male who presents for evaluation of right thumb pain, particularly in the MCP joint and IP joint of the right thumb, ongoing for many years. The patient states that he has been told he has significant arthritis in his thumb, and that there is not much to be done, although he would like to explore any potential treatment options available. Patient denies any numbness or tingling in the right hand. No other acute complaints or concerns at this time. [facility] Medical History (Updated 03/24/24 @ 19:01 by NABEEL Harrington) GERD (gastroesophageal reflux disease) Hypothyroid Hypercholesteremia Physical Exam Extrem Other: Patient is alert, oriented, and in no acute distress. Neuro: Normal sensation of the tips of all digits of the right hand at this time Vascular: Cap refill brisk Pain: Patient reports no tenderness to palpation of the basal joint, MCP joint, or IP joint of the right thumb Patient does report discomfort with range of motion of the right thumb, particularly in the MCP and IP joints ROM: Patient is able to make a closed fist and extend all digits of the right hand fully, but reports some discomfort and thumb when doing so Skin: No lacerations or abrasions. General: No ecchymosis, erythema, or evidence of infection. Psych: Appears grossly normal Affect normal Attitude cooperative Results Reviewed Results Reviewed: X-rays obtained in the office today and independently reviewed by me, Edin Rae PA-C, demonstrate moderate to severe arthritic changes of the MCP joint of the right thumb, as well as [id number] arthritic changes of the IP joint. Assessment & Plan Assessment & Plan (1) Osteoarthritis of right thumb: Code(s): M18.11 - Unilateral primary osteoarthritis of first carpometacarpal joint, right hand Category: Medical Plan 1. Right thumb osteoarthritis Patient is educated about this condition Patient is educated about the treatment options available, namely bracing, occupational therapy, and conservative pain management measures The patient does not feel that occupational therapy will benefit him much, but is open to bracing and [id number]-[id number] pain medication Patient is provided with a comfort cool thumb spica splint to be worn with daytime activities and while the thumb was particularly bothering him The patient is also educated on conservative pain management measures, such as rest, ice, elevation, [id number] pain medication, and turmeric is a natural anti-inflammatory Patient states understanding of this and is amenable to this plan Patient will follow-up as needed with any acute concerns Orders: Orders XR hand RT min 3V Today M79.641 - Pain in right hand Coding Level of Care Code New Pt Level 3 (38977) Diagnoses Osteoarthritis of right thumb M18.11
== END 2024-03-24 15:30 | disposition home or self-care (01) ==
PROVIDERS: PCP Internal Medicine
DX: M18.11 Unilateral primary osteoarthritis of first carpometacarpal joint, right hand (principal)
CPT/HCPCS: 99203

== ENCOUNTER 2024-06-29 14:55 | Outpatient (AMB) | payer BC, SELFPAY ==
--- NOTE | 2024-06-29 14:59 | A.OFFPC_ITS ---
Vital Signs 06/29/24 15:12 Height 6 ft 0.5 in Weight 274 lb BMI 36.6 BP 148/76 H Blood Pressure Location Rt brachial Pulse 58 Pulse Source Pulse Oximeter Temp 96.8 F Pulse Oximetry (%) 96 Intake Visit Reasons: 6 month follow up Intake Note: went to urgent care a few weeks ago for sinuses, androlled left jodie on Thanksgiving and was having a hard time sleeping at night, has a cough at night and by right jaw bome sees a lump not tender to tough Allergies SEASONAL ALLERGIES Allergy (Mild, Uncoded 06/29/24 15:38) WATERY EYES,NASAL CONGESTION.SNEEZING Medication List - Last Reconciled 06/29/24 by Lan Lee MD dicyclomine 20 mg PO DAILY diphenhydramine HCl (Benadryl) 25 mg PO TID PRN hydrochlorothiazide 50 mg PO DAILY metoprolol succinate ER 100 mg PO DAILY simvastatin 20 mg PO BEDTIME 90 days [facility] Medical History (Updated 06/29/24 @ 15:44 by Lan Lee MD) Class 2 severe obesity with body mass index (BMI) of 35 to 39.9 with serious comorbidity GERD (gastroesophageal reflux disease) Hypothyroid Hypercholesteremia Physical exam (Primary Care) Vital Signs: Last Vital Signs Temp 96.8 F 06/29/24 15:12 Pulse 58 06/29/24 15:12 BP 148/76 H 06/29/24 15:12 Pulse Ox 96 06/29/24 15:12 BMI result Body Mass Index 36.6 Coding Level of Care Code Est Pt Level 4 (07711) Complex EM visit Add On G2211 Diagnoses Hypertension I10 Upper respiratory tract infection J06.9 Class 2 severe obesity with body mass index (BMI) of 35 to 39.9 with serious comorbidity E66.812; E66.01 Assessment & Plan Assessment & Plan (1) Hypertension: Code(s): I10 - Essential (primary) hypertension Category: Medical Plan: Blood pressure is in range. Continue current medications. Blood work has been ordered. Will call with results. (2) Upper respiratory tract infection: Code(s): J06.9 - Acute upper respiratory infection, unspecified Plan: Patient was advised to take Benadryl and Sudafed. He has persistent postnasal drip after a recent upper respiratory tract infection. Symptoms should subside. (3) Class 2 severe obesity with body mass index (BMI) of 35 to 39.9 with serious comorbidity: Code(s): E66.812 - Obesity, class 2; E66.01 - Morbid (severe) obesity due to excess calories Category: Medical Plan: His lower limb venous insufficiency is due to excessive weight. Patient was advised the importance of diet and exercise and urged to lose weight aggressively. Plan History of Present Illness The patient is a 59-year-old male presenting with sinus symptoms and ankle pain. Approximately three weeks prior, he visited urgent care due to sinus issues and an ankle injury sustained from rolling his ankle on Thanksgiving. The treatment at urgent care included an inhaler, antibiotics, and steroids. However, he had concerns as his lungs were not examined, and there was no further evaluation of the ankle. The sinus symptoms persist, with nocturnal post-nasal drip leading to cough. Sinus issues have not resolved with prior interventions, and there is a need for further evaluation. Regarding the ankle injury, the patient was initially referred to an quality improvement specialist and ultimately consulted a ad operations specialist due to insurance directives. An X-ray was performed, revealing no fractures, but significant ankle pain persists, resulting in the patient wearing a brace. 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 The patient also reports a history of swollen feet and legs, which improved after wearing compression socks upon his PA student daughter's suggestion. Additionally, blood pressure readings were noted to be elevated at 160, with previous readings around 148. 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 - Noted improvement in lower extremity swelling with compression socks, as observed by his daughter who is a PA student - Engages in tasks requiring prolonged standing and physical labor Review of Systems - Respiratory: Reports nocturnal cough; denies history of asthma - Cardiovascular: Swelling in feet and legs - Musculoskeletal: Persistent ankle pain - Hematologic/Lymphatic: Previously swollen lymph node, now resolved Physical Exam General: Cooperative and healthy appearing Nutritional Appearance: Well nourished Orientation/consciousness: Patient oriented x3 Limitations: No limitations Head: Normal to inspection General: Appearance normal, both eyes and all related structures Neck: Normal visual inspection Chest: Normal palpation of entire chest wall Respiratory: Normal respiratory effort Neurology: Patient oriented x3 Results - Imaging: Ankle X-ray showed no fractures Plan - Further evaluation of persistent sinus symptoms for appropriate management - Continuation of ankle support with brace; consider follow-up with ad operations specialist if pain persists - Obtain updated blood work, including A1c, to assess glucose levels - Monitor blood pressure and consider antihypertensive therapy as needed Patient was informed and verbally consented to the use of an ambient scribe for clinic note documentation during this visit. Discussion Notes During the visit, we discussed management options for the patient's sinusitis, including the need for ongoing treatment and potential adjustments depending on symptom progression. The patient expressed dissatisfaction with prior care regarding his ankle injury, and it is important to ensure appropriate follow-up if ankle pain continues. We also discussed the significance of monitoring blood pressure, given its recent elevation, and the steps that may be needed to manage hypertension. Follow-up laboratory work will help to determine if there are any underlying chronic conditions that need addressing, such as diabetes or metabolic concerns. Patient agrees to plan and will contact if symptoms worsen or additional issues arise. Patient Instructions - Continue wearing compression socks to manage leg swelling - Maintain use of ankle brace for support; follow up if pain persists - Monitor blood pressure regularly; report significant increases - Return if sinus symptoms do not improve or if additional concerns develop - Complete blood tests as discussed, including A1c level Orders: Orders Complete Blood Count no Diff Today I10 - Essential (primary) hypertension Lipid Panel Today I10 - Essential (primary) hypertension Liver Panel Today I10 - Essential (primary) hypertension Hemoglobin A1c Today I10 - Essential (primary) hypertension Basic Metabolic Panel Today I10 - Essential (primary) hypertension Thyroid Stimulating Hormone Today I10 - Essential (primary) hypertension UA and rflx microscopic Today I10 - Essential (primary) hypertension
[2024-06-29 15:12] VITALS: BP 148/76; PULSE 58; TEMP 36; O2SAT 96; BMI 36.6
--- OUTSIDE RECORDS SUMMARY | 2024-06-29 18:42 | XMS_ITS | Patient Health Record ---
[facility] Address [address] [facility] [place] [address] Care Team Providers Care Extrusion Die Coordinator Name Role Phone Chico Church MD Primary Care Provider Unavail able Mckenna Rodriguez Unavailable [phone] Tiffanie Edmond Unavailable [phone] Allergies No Known Allergies Reason For Referral No Information Medications Medication SIG (Take, Route, Fr equency, Duration) Notes Start Date End Date Status Dicyclomine HCl Acti ve Medrol lisa 4mg as directed orally a s directed for 6 days 06/22/2024 Active Ammonium Lactate 12 % 1 application Exte rnally to affected areas of dry skin to feet except for between the toes Twice a day for 30 days Act ledy hydroCHLOROthiazide Active Walking Boot/Pneumatic As directed Wear Daily for Until further notice 06/22/2024 Active Terbinafine HCl 250 MG 1 tablet Orally O nce a day for 30 days 04/20/2024 Active Metoprolol Succinate Active Simvastatin Active Social History Tobacco Use: Social History Observation Description Date Details (start date - stop date) Never Smoker NA - NA Tobacco use other than smoking: Question Answer Notes Are you an other tobacco user? No Tobacco Control (Standard) Question Answer Notes Tobacco use: Nonsmoker Additional Findings: Tobacco non-user Current no nsmoker AUDIT-C (Standard) Question Answer Notes Did you have a drink contain ing alcohol in the past year? Yes How often did you have six o r more drinks on one occasion in the past year? Less than monthly (1 point) How many drinks did you have on a typical day when you were drinking in the past year? 1 or 2 drinks (0 point) How often did you have a dri nk containing alcohol in the past year? Monthly or less (1 point) Points 2 Interpretation Negative Vital Signs Blood pressure diastolic 80 mm Hg 06/22/2024 Height 6ft3in in 06/22/2024 Blood pressure systolic 130 mm Hg 06/22/2024 Weight 270 lbs 06/22/2024 BMI 33.74 kg/m2 06/22/2024 Encounters Encounter Location Date Provider Diagnosis [address] [address] 04/08/2024 Mckenna Rodriguez Pain in right toe(s) M79.674 ; Onychomycosis B35.1 ; Pain in left toe(s) M79.675 and Xerosis of skin L85.[address] [address] 06/22/2024 Tiffanie Feli Acute left ankle jose m n M25.572 ; Sprain of anterior talofibular ligament of left ankle, initial encounter S93.492A ; Sprain of calcaneofibular ligament of left ankle, initial encounter S93.412A and Strain of peroneal tendon of left foot, initial encounter S86.312A [address] [address] 03/26/2024 Mckenna Rodriguez [address] [address] 04/20/2024 Mckenna Rodriguez Assessments Encounter Date Diagnosis (ICD Code) Assessment Notes Treatment Notes Treatment Clinical Notes Section Notes 04/08/2024 Pain in right toe(s) (ICD-10 - M79.674) 04/08/2024 Onychomycosis (ICD-10 - B35.1) 06/22/2024 Acute left ankle pain (ICD-10 - M25.572) 06/22/2024 Sprain of anterior talofibular ligament of left ankle, initial encounter (ICD-10 - S93.492A) Dx New problem, Prognosis Uncertain (4) 04/08/2024 Pain in left toe(s) (ICD-10 - M79.675) 06/22/2024 Sprain of calcaneofibular ligament of left ankle, initial encounter (ICD-10 - S93.412A) Dx New problem, Prognosis Uncertain (4) 04/08/2024 Xerosis of skin (ICD-10 - L85.3) 06/22/2024 Strain of peroneal tendon of left foot, initial encounter (ICD-10 - S86.312A) Dx New problem, Prognosis Uncertain (4) Plan Of Treatment Pending Test Test Name Order Date X ray : Ankle, left 3V 06/22/2024 *Liver Function Test (LFT) 04/08/2024 X ray : Foot, left 3V 06/22/2024 Next Appt Details Provider Name:Tiffanie cano, 07/21/2024 10:30:00 AM, [address] [place] [address], [phone], Provider Name:Mckenna edwards, 08/18/2024 03:30:00 PM, [address] [place] [address], [phone], Insurance Providers Payer Name Payer Address Payer Phone Subscriber Number Group Number Insured Name Patient Relationship to Insured Coverage Start Date Coverage End Date [facility] [address] [place] [address] [phone] [id number] Ponce Chen Self - patient is the insured Medical (General) History Medical History History ICD Code Back,Hip,and Knee pain covid-19 High Blood Pressure sinusitis Chicken pox Surgical History Surgery Date(Month/Year) sinus surgery lymphectomy
--- OUTSIDE RECORDS SUMMARY | 2024-06-29 18:42 | XMS_ITS ---
Author Organization Chico Church DO, [facility] Address [address] [place], [place] [id number] Care Team Providers Care Test Car Driver Name Role Phone Chico Church Primary Care Provider REASON FOR VISIT Message SOCIAL HISTORY Sex Assigned At : Social History Observation Description Sex Assigned At Male Encounters Encounter Location Date Provider Diagnosis Chico Church DO, [facility] [address] [place], [place] [id number] 04/05/2024 Chico Church Abdominal mass, unspecified abdominal location R19.00 ASSESSMENTS Encounter Date Diagnosis Assessment Notes Treatment Notes Treatment Clinical Notes 04/05/2024 Abdominal mass, unspecified abdominal location (ICD-10 - R19.00) PLAN OF TREATMENT No Information
--- OUTSIDE RECORDS SUMMARY | 2024-06-29 18:42 | XMS_ITS ---
Author Organization [facility] Address [address] [place] [address] Care Team Providers Care General Education Instructor Name Role Phone Chico Church MD Primary Care Provider Unavail able Mckenna Rodriguez Unavailable [phone] Feli Tiffanie Unavailable [phone] Allergies No Known Allergies REASON FOR VISIT Ankle pain Medications Medication SIG (Take, Route, Fr equency, Duration) Notes Start Date End Date Status Medrol lisa 4mg as directed orally a [...] a day for 30 days 04/20/2024 Active Dicyclomine HCl Acti ve Metoprolol Succinate Active Simvastatin Active Social History Tobacco Use: Social History Observation Description Date Details (start date - stop date) Never Smoker NA - NA Tobacco use other than smoking: Question Answer Notes Are you an other tobacco user? No Tobacco Control (Standard) Question Answer Notes Tobacco use: Nonsmoker Additional Findings: Tobacco non-user Current no nsmoker Vital Signs Height 6ft3in in 06/22/2024 Weight 270 lbs 06/22/2024 BMI 33.74 kg/m2 06/22/2024 Blood pressure systolic 130 mm Hg 06/22/19 25 Blood pressure diastolic 80 mm Hg 025 Encounters Encounter Location Date Provider Diagnosis [facility] [address] [place] [address] 06/22/2024 Tiffanie Edmond Acute left ankle jose m n M25.572 ; Sprain of anterior talofibular ligament of left ankle, initial encounter S93.492A ; Sprain of calcaneofibular ligament of left ankle, initial encounter S93.412A and Strain of peroneal tendon of left foot, initial encounter S86.312A Assessments Encounter Date Diagnosis (ICD Code) Assessment Notes Treatment Notes Treatment Clinical Notes Section Notes 06/22/2024 Acute left ankle pain (ICD-10 - M25.572) 06/22/2024 Sprain of anterior talofibular ligament of left ankle, initial encounter (ICD-10 - S93.492A) Dx New problem, Prognosis Uncertain (4) 06/22/2024 Sprain of calcaneofibular ligament of left ankle, initial encounter (ICD-10 - S93.412A) Dx New problem, Prognosis Uncertain (4) 06/22/2024 Strain of peroneal tendon of left foot, initial encounter (ICD-10 - S86.312A) Dx New problem, Prognosis Uncertain (4) Plan Of Treatment Medication Medication Name Sig Start Date Stop Date Notes Medrol lisa 4mg as directed orally a s directed for 6 days 06/22/2024 Walking Boot/Pneumatic As directed Wear Daily for Until further notice 06/22/2024 Pending Test Test Name Order Date X ray : Ankle, left 3V 06/22/2024 X ray : Foot, left 3V 06/22/2024 Next Appt Details Follow Up: 4 Weeks, Reason: Provider Name:Tiffanie cano, 07/21/2024 10:30:00 AM, [address] [place] [address], [phone], Provider Name:Mckenna edwards, 08/18/2024 03:30:00 PM, [address] [place] [address], [phone], Progress Notes * Ponec CHEN RDOB:[birth year] (59 yo M)Acc No.[id number]:06/22/2024 Progress Note Patient:?Ponce CHEN Provider:?Tiffanie Edmond DPM :1965???Age:59 Y???Sex:Male Jaskaran e:06/22/2024 Address:[address] [place] [address], [facility] Pcp:Chico Church MD Subjective: * Chief Complaints: * ???Ankle pain * HPI: ???Ankle Pain:?Nature:?aching, bruising, pulling, ripping/tearing/searing, sharp, swelling, tenderness, throbbing.?Location:?Outside aspect of the Left ankle.?Duration: ?Injury on gi, but in last 4 weeks has been having pain and getting worse.?Onset/Cause:?trauma [ sprained ankle in a hole].?Course:?worse.?Aggravated by:?any pressure, standing, walking.?Treatments:?rest/alter normal daily activity, ankle brace for about a week, Motrin 800mg.? * ROS:?General/Constitutional:?Nausea?denies.?Vomiting?denies.?Hunger Thirst?denies.?Loss appetite?denies.?Chills?denies.?Fatigue?denies.?Fever?denies.?Night Sweats?denies.?Unexplained weight loss?denies.?Unexplained weight gain?denies.?HEENTM:?Dentures?denies.?Dizziness?denies.?Glasses/contacts?admits.?Retinopathy?de nies.?Blurred/double vision?denies.?TMJ?denies.?Discharge/drainage?denies.?Implants?denies.?Sore throat?denies.?Dental implants?denies.?Hard of hearing ?denies.?Difficulty chewing/swallowing/speaking?denies.?Nose bleeds?denies.?Sore mouth?denies.?Respiratory:?On Oxygen?denies.?Pneumonia/pleurisy?denies.?Bronchitis?admits.?Emphysema?denies.?C oughing?denies.?Cough blood?denies.?Shortness of breath?denies.?Wheezing?denies.?Cardiovascular:?Pacemaker?denies.?MVP?denies.?WPW?denies.?CHF?denies.?Heart attack?denies.?Septal defect?denies.?Rapid beat?denies.?Chest pain ?denies.?Atrial Fib.?denies.?Murmur/Palpitations?denies.?Gastrointestinal:?Hemorrhoids?denies.?Stomach/Abdominal pain?denies.?Dark blood stool?denies.?Irritable bowel ?denies.?Constipation?denies.?Diarrhea?denies.?Hematology:?Swelling?denies.?Clots?denies.?Varicose Veins?denies.?Bruising?denies.?Bleeding problem?denies.?Genitourinary:?Blood urine?denies.?Frequent/Painfu/urination/bladder control?denies.?Kidney stones?denies.?Infection (UTI)?denies.?Nephropathy?denies.?sex trans dis (STD)?denies.?Prostate?denies.?Musculoskeletal:?Hammertoes?denies.?Bunions?denies.?Back Pain?denies.?Muscle Cramps/ Resting?denies.?Muscle cramps / walking?denies.?Generalized aches and pains?admits.?Weakness?denies.?Integ.:?Puckett?denies.?Scars?denies.?Corns/calluses?denies.?Ingrown nails?denies.?Painful nails?denies.?Open Sores?denies.?Rashes?denies.?Neurologic:?Difficulty sleeping?denies.?Brain disorder?denies.?Numbness?denies.?Balance trouble?denies.?Confusion?denies.?Fainting/blackouts?denies.?Tingling?denies.?Tr emors?denies.? * Medical History:? * Surgical History:?sinus surg armin lymphectomy * Hospitalization/Major Diagno stic Procedure:?Denies Past Hospitalization * Family History:?Mother: sharmin jaurez, diagnosed with Other malignant neoplasm of unspecified site.?Father: alive.? * Social History:?Tobacco Use:?Tobacco use other than smoking?Are you an other tobacco user??No ?Tobacco Control (Standard)?Tobacco use:?Nonsmoker ?Additional Findings: Tobacco non-user?Current nonsmoker ???Miscellaneous:?Caffeine: yes. ?Children: no. ?Exercise: no. ?Marital status: . 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 * Medications:?TakingSimvastat in Metoprolol Succinate Dicyclomine HCl hydroCHLOROthiazide Ammonium Lactate 12 % Cream 1 application Externally to affected areas of dry skin to feet except for between the toes Twice a day Terbinafine HCl 250 MG Tablet 1 tablet Orally Once a day Medication List reviewed and reconciled with the patientTaking Simvastatin Taking Metoprolol Succinate Taking Dicyclomine HCl Taking hydroCHLOROthiazide Taking Ammonium Lactate 12 % Cream 1 application Externally to affected areas of dry skin to feet except for between the toes Twice a day Taking Terbinafine HCl 250 MG Tablet 1 tablet Orally Once a day Medication List reviewed and reconciled with the patient * Allergies:?N.K.D.A.yes[Aller gies Verified] Objective: * Vitals:?Ht: 6ft3in, Wt:270, BMI:33.74, Shoe size: 14W, BP:130/80mm Hg, Ht-cm: 190.5 cm, Wt-k.47 kg. * Examination: ???Orthopedic: ?MUSCLE STRENGTH:?5/5 all groups in a symmetrical fashion, B/L.?MPJ PATHOLOGY:?, Pain on Metatarsal Palpation proximal 1/3 shaft 5th left.?ANKLE PAIN LOCATED:? LEFT, Lateral ankle, ( +) swelling, ( -) ecchymosis, ( +) lateral instability, pain with ankle joint ROM, Pain on palpation to, ATFL, CFL,Peroneal tendons,pain with ankle joint ROM.?FOOTWEAR:?fair condition.?X-Rays - IMAGING REPORT: ?Clinical Indication(s):? Evaluate for Fracture.?Views:?3 views of Ankle, AP, LAT, LO, 3 views of Foot, AP, LO, LATLEFTTaken by trainedPodiatric Cuff Setter Lockstitch (SF).?Findings:? normal bone and soft tissue density consistent for patients age and sex, calcifications, degenerative changes 5th met base.?Fracture:?Negative fractures identified.?General Examination: ?GENERAL APPEARANCE:?Reveals a pleasant, alert, well nourished, well- developed, well hydrated individual, who demonstrates proper attention to hygiene/body habitus, and is in no acute distress, Pt serves as own historian for office visit today.?ORIENTED:?person, place, and time.?Vascular: ?DP PULSES (B):?3/4, B/L.?PT PULSES (B):?3/4, B/L.?CAPILLARY FILL TIME:?immediate, all digits, B/L.?TROPHIC CONDITION-TEXTURE/ELASTICITY/TURGOR/HAIR GROWTH (B):?normal, B/L.?TEMPERTURE GRADIENT (C):?normal, warm to cool, proximal to distal, B/L, B/L.?PIGMENTATION:?normal, B/L.?EDEMA (C):?absent, B/L.?Neurological: ?SENSORY:?Neurological exam reveals intact sensorium, pain sensation normal, vibration sensation intact, pinprick sensation is normal in the lower extremities, Pt denies, anesthesia, burning, paresthesia, tingling, B/L.? * Physical Examination:?L4361 Pneumatic Walking Boot:?Application of pneumatic walking boot, prefabricated, including fitting and adjustment:?XL, Left.? Assessment: * Assessment: 1.?Acute left ankle pain - M 25.572???2.?Sprain of anterior talofibular ligament of left ankle, initial encounter - S93.492A (Primary)???Specify :Acute problem, Complicated w/ Multiple Tx Options(4)???Notes :Dx New problem, Prognosis Uncertain (4)???3.?Sprain of calcaneofibular ligament of left ankle, initial encounter - S93.412A???Specify :Acute problem, Complicated w/ Multiple Tx Options(4)???Notes :Dx New problem, Prognosis Uncertain (4)???4.?Strain of peroneal tendon of left foot, initial encounter - S86.312A???Specify :Acute problem, Complicated w/ Multiple Tx Options(4)???Notes :Dx New problem, Prognosis Uncertain (4)??? Plan: * Treatment: * Procedure Codes:?54743 X-RAY EXAM OF LEFT ANKLE 3V, Modifiers: 26 , [id number] WALKING BOOT PNEUMATIC AND OR [id number] X-RAY EXAM OF LEFT FOOT 3V, Modifiers: 26 , LT * Preventive Medicine:? ??Counseling:?Discussion:?-14: Office or other outpatient visit for the evaluation and management of an established patient, which required a medically appropriate history and/or examination and MODERATE level of DECISION MAKING for: 1 OR MORE CHRONIC PROBLEM(S) THATS WORSENING, 2 STABLE CHRONIC PROBLEMS, A NEWLY DIAGNOSED PROBLEM WITH UNCERTAIN PROGNOSIS, AN ACUTE COMPLICATED INJURY WITH MULTIPLE TREATMENT OPTIONS, OR AN ACUTE PROBLEM WITH ACCOMPANYING SYSTEMIC SYMPTOMS, THAT POSE(S) A MODERATE RISK OF MORBIDITY. THIS CONDITION MAY ALSO INCLUDE RX DRUG MANAGEMENT, OR A DECISON FOR MINOR SURGERY. The visit on the day of the encounter encompassed interpreting the data and educating the patient as to the nature of their condition, treatment options available according to their individual PMH, meds, allergies, and overall health/living conditions, as well as any potential risks or complications that may occur from a failure to adhere to, and participate in, the recommended course of therapy. The discussion included a complete verbal, and/or written explanation of the examination results, any x-rays taken, the proposed diagnosis, and outline of the treatment plan. A schedule for future care needs was also explained. The patient verbalized an understanding of the instructions at this time and agreed to be an active participant in their treatment. If the patient should think of any questions or concerns after the visit, I have encouraged the patient to call the office.?Ankle Pain:?I explained to the patient the possible etiologies of their Ankle Pain, including foot type/shoegear/activity level/exercise routine and the risks/benefits of all the different treatment options for pain including: No treatment at all, Rest, Ice, NSAIDs(only if well tolerated after meals), New/supportive Shoegear, Strappings and Tapings, Foot/Ankle AFO Bracing, Stretching exercises, Deep Tissue Massage, Heel cups/cushions, Arch support/shoe inserts, Custom orthoses, Topical analgesics including Aspercream/Voltaren gel, Night splints for am stiffness, Physical Therapy, EPAT/ESWT, Interfil injection therapy. Advantages and disadvantages of each option were discussed and the patients questions re: shoegear, custom vs prefabricated inserts, activity level, PO vs Topical medications (and their respective potential complications/drug interactions/side effects), and consistency in home treatment regimens for optimal success were answered to their verbally confirmed satisfaction.?P.R.I.C.E.:?The patient was counseled on the use of P.R.I.C.E. and NSAIDS (if well tolerated) to aid in the recovery from their painful condition, Recommended Topical analgesics including Aspercream/Biofreeze/Voltaren gel as directed, pt using ASO brace already without releif, recommend immobiliztion with cast boot and decreased activites.?X-rays:?Discussed and reviewed the X-rays with the patient. We discussed how the findings relate to the patients symptoms/complaints. Answered any and all questions..? ??Screening/Special Tests:?Fall Risk?Assessment:?Performed ?Plan of Care:?Documented ?Type of fall plan of care:?Balance, strength and gait training or instruction provided ?Screening:?One fall with injury in the past year ?FALLS: Screening for Future Fall Risk?Have you had two or more falls in the past year??No ?Have you had any falls with injury in the past year??Yes * Follow Up:?4 Weeks * Images: * Sign off status: Completed true * Provider:?Tiffanie Edmond, DPMatt Date:? Generated for Cindy wood/Yoselyn/eTransmitting on:?06/29/2024 06:42 PM EST History and Physical Notes * HPI (History of Present Illness) Category Sub-Category Detail Notes Category Not es Ankle Pain Duration: Injury on Thanks giving, but in last 4 weeks has been having pain and getting worse Nature: aching, bruising, pu lling, ripping/tearing/searing, sharp, swelling, tenderness, throbbing Treatments: rest/alter normal da beulah activity, ankle brace for about a week, Motrin 800mg Course: worse Location: Outside aspect of th e Left ankle Onset/Cause: trauma [ sprained an kle in a hole] Aggravated by: any pressure, standi ng, walking Physical Examination Category Sub-Category Detail Notes Section Note s L4361 Pneumatic Walking Boot Application of pneumatic walking boot, prefabricated, including fitting and adjustment: XL, Left Examination Category Sub-Category Detail Notes Category Not es Neurological SENSORY: Neurological exa m reveals intact sensorium, pain sensation normal, vibration sensation intact, pinprick sensation is normal in the lower extremities, Pt denies, anesthesia, burning, paresthesia, tingling, B/L Orthopedic ANKLE PAIN LOCATED: LEFT, Latera l ankle, ( +) swelling, ( -) ecchymosis, ( +) lateral instability, pain with ankle joint ROM, Pain on palpation to, ATFL, CFL,Peroneal tendons,pain with ankle joint ROM FOOTWEAR: fair condition MPJ PATHOLOGY: , Pain on Metatarsal Palpation proximal 1/3 shaft 5th left MUSCLE STRENGTH: 5/5 all groups in a symmetrical fashion, B/L General Examination GENERAL APPEARANCE: Reveals a pleasant, alert, well nourished, well-developed, well hydrated individual, who demonstrates proper attention to hygiene/body habitus, and is in no acute distress, Pt serves as own historian for office visit today ORIENTED: person, place, and t reji Vascular DP PULSES (B): 3/4, B/L PT PULSES (B): 3/4, B/L CAPILLARY FILL TIME: immediate, all digi ts, B/L TEMPERTURE GRADIENT (C): normal, warm to cool, proximal to distal, B/L, B/L TROPHIC CONDITION-TEXTURE/ELASTICITY/TURGOR/HAIR GROWTH (B): normal, B/L EDEMA (C): absent, B/L PIGMENTATION: normal, B/L X-Rays - IMAGING REPORT Findings: normal b one and soft tissue density consistent for patients age and sex, calcifications, degenerative changes 5th met base Fracture: Negative fractures i dentified Views: 3 views of Ankle, AP , LAT, LO, 3 views of Foot, AP, LO, LATLEFT Taken by trained Podiatric Cuff Setter Lockstitch ( SF) Clinical Indication(s): Evaluate for Fra cture
--- OUTSIDE RECORDS SUMMARY | 2024-06-29 18:42 | XMS_ITS | Patient Health Record ---
Author Organization [facility] Address [address] [place] [address] Care Team Providers Care Negative Notcher Name Role Phone Lynnette (RETIRED) Chico FINLEY Primary Care Provid er Unavailable Vinh Willoughby Jr Unavailable REASON FOR REFERRAL No Information MEDICATIONS Medication SIG (Take, Route, Fr equency, Duration) Notes Start Date End Date Status hydroCHLOROthiazide Active Simvastatin Active ibuprofen 800 mg prn Act ledy Dicyclomine HCl 20 MG 1 tablet Orally 2- 4 times a day 04/21/2020 Active Metoprolol Succinate Active IMMUNIZATIONS Vaccine Route Administration Date Status Comme nts Influenza Unknown 04/21/2020 Refused SOCIAL HISTORY Sex Assigned At : Social History Observation Description Sex Assigned At Unknown PROBLEMS Problem Type ICD Code Onset Dates Problem Status W/U Status Risk SNOMED Code Notes Problem Colon cancer screening (Z12.11) Active confirmed 333870865 Problem shelter (current) use of non-steroidal anti-inflammatorie s (NSAID) (Z79.1) Active confirmed 449828546 Problem Esophageal spasm (K22.4) Active confirmed 050327787 Problem Long-term current use of high risk medication other than anticoagulant (Z79.899) Active confirmed 503996620 PLAN OF TREATMENT Future Test Test Name Order Date COLONOSCOPY 10/19/2015 COLONOSCOPY 11/19/2017 Insurance Providers Payer Name Payer Address Payer Phone Subscriber Number Group Number Insured Name Patient Relationship to Insured Coverage Start Date Coverage End Date [facility] [address] [place] [phone] [id number] DEXTER JOHANSEN Self - patient is the insured MEDICAL (GENERAL) HISTORY Medical History History ICD Code hypertension mitral valve prolapse elevated cholesterol Denies VA,DM,CVA,Lung disease,renal dise ase covid positive 04/2020 Surgical History Surgery Date(Month/Year) lipoma removal sinus surgery
--- OUTSIDE RECORDS SUMMARY | 2024-06-29 18:43 | XMS_ITS ---
Author Organization [facility] Anthony elizabeth [place] Address [address] [place] [address] Care Team Providers Care Operating Manager Name Role Phone Chico Church MD Primary Care Provider Unavail able Mckenna Rodriguez Unavailable [phone] Allergies No Known Allergies REASON FOR VISIT PCP: 03/2024, Fungal Nails, Skin problem(s) Medications Medication SIG (Take, Route, Fr equency, Duration) Notes Start Date End Date Status Ammonium Lactate 12 % 1 application Exte rnally to affected areas of dry skin to feet except for between the toes Twice a day for 30 days Act ledy hydroCHLOROthiazide Active Dicyclomine HCl Acti ve Metoprolol Succinate Active Simvastatin Active Social History Tobacco Use: Social History Observation Description Date Details (start date - stop date) Former Smoker NA - NA Tobacco use other than smoking: Question Answer Notes Are you an other tobacco user? No Tobacco Control (Standard) Question Answer Notes Tobacco use: Former smoker Additional Findings: Tobacco non-user Current no nsmoker [...] point) Points 2 Interpretation Negative Vital Signs Height 6ft 3 inch in 04/08/2024 Weight 265 lbs 04/08/2024 BMI 33.12 kg/m2 04/08/2024 Encounters Encounter Location Date Provider Diagnosis [facility] [place] [address] [place] [address] 04/08/2024 Mckenna Rodriguez Pain in right toe(s) M79.674 ; Onychomycosis B35.1 ; Pain in left toe(s) M79.675 and Xerosis of skin L85.3 Assessments Encounter Date Diagnosis (ICD Code) Assessment Notes Treatment Notes Treatment Clinical Notes Section Notes 04/08/2024 Pain in right toe(s) (ICD-10 - M79.674) 04/08/2024 Onychomycosis (ICD-10 - B35.1) 04/08/2024 Pain in left toe(s) (ICD-10 - M79.675) 04/08/2024 Xerosis of skin (ICD-10 - L85.3) Plan Of Treatment Medication Medication Name Sig Start Date Stop Date Notes Ammonium Lactate 12 % 1 application Exte rnally to affected areas of dry skin to feet except for between the toes Twice a day for 30 days Pending Test Test Name Order Date *Liver Function Test (LFT) 04/08/2024 Next Appt Details Follow Up: 4 Months, Reason: Provider Name:Tiffanie cano, 07/21/2024 10:30:00 AM, [address] [place] [address], [phone], Provider Name:Mckenna edwards, 08/18/2024 03:30:00 PM, [address] [place] [address], [phone], Progress Notes * Ponce CHEN RDOB:[birth year] (59 yo M)Acc No.[id number]:04/08/2024 Progress Notes Patient:?Ponce CHEN Provider:?Mckenna Rodriguez DPM :1965???Age:59 Y???Sex:Male Jaskaran e:04/08/2024 Address:[address] [place] [address] Pcp:Chico Church MD Subjective: * Chief Complaints: * ???PCP: 03/2024Fungal NailsS kin problem(s) * HPI: ???Painful Nails:?Nature:?aching, tender, discolored, thick.?Location:?Great toe, Both feet.?Duration:?several months.?Course:?worse.?Aggravated by:?shoegear causing difficulty standing/walking.?Treatments:?none.?Skin problems:?Nature:?dryness , scaling.?Location:?B/L .?Duration:?several days.?Course:?worse.? * ROS:?General/Constitutional:?Nausea?denies.?Vomiting?denies.?Hunger Thirst?denies.?Loss appetite?denies.?Chills?denies.?Fatigue?denies.?Fever?denies.?Night Sweats?denies.?Unexplained weight loss?denies.?Unexplained [...] Procedure:?Denies Past Hospitalization * Family History:?Mother: sharmin juarez, diagnosed with Other malignant neoplasm of unspecified site.?Father: alive.? * Social History:?Tobacco Use:?Tobacco use other than smoking?Are you an other tobacco user??No ?Tobacco Control (Standard)?Tobacco use:?Former smoker ?Additional Findings: Tobacco non-user?Current nonsmoker ???Drugs/Alcohol:?Drugs?Have you used drugs other than those for medical reasons in the past 12 months??No ???Miscellaneous:?Caffeine: yes. ?Children: no. ?Exercise: no. ?Marital status: . 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 ???Drug/Alcohol:?AUDIT-C (Standard)?Did you have a drink containing alcohol in the past year??Yes ?How often did you have six or more drinks on one occasion in the past year??Less than monthly (1 point) ?How many drinks did you have on a typical day when you were drinking in the past year??1 or 2 drinks (0 point) ?How often did you have a drink containing alcohol in the past year??Monthly or less (1 point) ?Points?2 ?Interpretation?Negative * Medications:?TakingSimvastat in Metoprolol Succinate Dicyclomine HCl hydroCHLOROthiazide Medication List reviewed and reconciled with the patientTaking Simvastatin Taking Metoprolol Succinate Taking Dicyclomine HCl Taking hydroCHLOROthiazide Medication List reviewed and reconciled with the patient * Allergies:?N.K.D.A.yes[Aller sylvia Verified] Objective: * Vitals:?Ht:6ft 3 inch, Wt:26 5, BMI:33.12, Shoe size:14W, Ht-cm: 190.5 cm, Wt-k.2 kg. * Examination: ???General Examination: ?GENERAL APPEARANCE:?Reveals a pleasant, alert, well-nourished, well- developed, well hydrated individual, who demonstrates proper attention to hygiene/body habitus, and is in no acute distress, Pt serves as own?historian for office visit today.?ORIENTED:?person, place, and time.?Dermatologic: ?SKIN FINDINGS:?Skin shows sign(s) of, dryness, scaling, in a stocking fashion, no fissure(s) present, B/L , Skin exam reveals normal texture, elasticity, and turgor. There are no masses. The interspaces are clear.?Nails: ?NAILS are:?Elongated, overgrown, dystrophic, lytic, greater than 3mm thick, discolored and friable with crumbly malodorous subungual debris, with pain on palpation, TA, T5.?Neurological: ?SENSORY:?Neurological exam reveals intact sensorium, pain sensation normal, vibration sensation intact, pinprick sensation is normal in the lower extremities, Pt denies, anesthesia, burning, paresthesia, tingling, B/L.?DEEP TENDON REFLEXES:?Achilles, 2/4, B/L.?Vascular: ?DP PULSES(B):?3/4, B/L.?PT PULSES(B):?3/4, B/L.?CAPILLARY FILL TIME:?immediate, all digits, B/L.?TROPHIC CONDITION-TEXTURE/ELASTICITY/TURGOR/HAIR GROWTH(B):?normal, B/L.?TEMPERTURE GRADIENT(C):?warm to cool, proximal to distal, B/L.?PIGMENTATION:?normal, B/L.?EDEMA(C):?absent, B/L.?Orthopedic: ?MUSCLE STRENGTH:?5/5 all groups in a symmetrical fashion , B/L.? Assessment: * Assessment: 1.?Pain in right toe(s) - M7 9.674???2.?Onychomycosis - B35.1 (Primary)???Specify :Acute problem, Complicated w/ Multiple Tx Options(4) Rx Management (4)???3.?Pain in left toe(s) - M79.675???4.?Xerosis of skin - L85.3???Specify :Acute problem, Uncomplicated (3),Rx Management (4)??? Plan: * Treatment: 2.?Xerosis of skin? Start Ammonium Lactate Cream, 12 %, 1 application, Externally to affected areas of dry skin to feet except for between the toes, Twice a day, 30 days, 140, Refills 2.?? * Procedure Codes:? * Preventive Medicine:? ??Counseling:?Discussion:?-04: Office or other outpatient visit for the evaluation and management of a new patient, which required a medically appropriate history [...] have encouraged the patient to call the office.?Fungal Nail Counseling:?The patient was counseled on the diagnosis, potential etiologies (including, but not limited to, environmental factors, genetic, immune deficiency), and the multiple treatment options for Onychomycosis. We discussed the risks and benefits of each option from performing no treatment, to ultraviolet light shoe treatment, to laser nail treatment, to applying topical antifungals, to taking oral antifungal medication, to surgical removal of the involved nail(s) with or without performing a matricectomy, or any combination thereof. We discussed the advantages and disadvantages of each of possible treatment and importance for adherence to all the recommended therapies for optimum success. This includes the necessity for weekly emery board self nail home debridements, and control the nail and skin environment as much as possible by only using a fresh, dry pair of shoes/socks each day, as well as keeping the skin as dry as possible through the use of sprays/powders if necessary. The patient was instructed to discard the emery board after use to prevent reinfection of the involved nail(s). We discussed the mycological and visual clinical effectiveness of topical vs oral antifungal treatments as well as each ones potential side effects and/or any patient- specific medication interactions. We discussed the reasons behind the important requirement of regular liver function testing with oral antifungal therapy for safety. Patient questions regarding use, dosage, successful outcomes, blood tests, and possible pharmaceutical interactions were reviewed and the patient verbalized that all answers were clearly understood , An LFT was ordered in preparation for Lamisil prescription therapy.?Xerosis:?The patient was counseled on the diagnosis, potential etiologies, and treatment options for their skin condition. We discussed the risks and benefits of each option from performing no treatment, to utilizing OTC topical skin creams/ointments, to utilizing prescription topical creams/ointments, to utilizing customized compounded topical medications and use of nocturnal occlusion with any/all previously detailed therapies. We discussed the advantages and disadvantages of each possible treatment and importance for adherence to all the recommended therapies for optimum success and avoid potential complications such as open sore/infection/possible hospitalization. We discussed the potential effectiveness of each topical preparation as well as each ones possible side effects and/or patient medication interactions. Patient questions re: use, dosage, successful outcomes, and application consistency were reviewed and the patient verbalized that all answers were clearly understood. The patient has decided to apply Rx skin creams to their feet save the interspaces while paying special attention to the heels. Such was sent to their pharmacy at the time of visit.? * Follow Up:?4 Months * Images: * Sign off status: Completed true * Provider:?Mckenna Rodriguez DPM Date:?1 06/09/2023 Generated for Terei nina/Yoselyn/eTransmitting on:?06/29/2024 06:42 PM EST History and Physical Notes * HPI (History of Present Illness) Category Sub-Category Detail Notes Category Not es Painful Nails Aggravated by: shoegear causing difficulty standing/walking Course: worse Duration: several months Location: Great toe, Both feet Nature: aching, tender, disc olored, thick Treatments: none Skin problems Nature: dryness , scaling Location: B/L Duration: several days Course: worse Examination Category Sub-Category Detail Notes Category Not es Neurological SENSORY: Neurological exa m reveals intact sensorium, pain sensation normal, vibration sensation intact, pinprick sensation is normal in the lower extremities, Pt denies, anesthesia, burning, paresthesia, tingling, B/L DEEP TENDON REFLEXES: Achilles, 2/4, B/L Dermatologic SKIN FINDINGS: Skin shows sign( s) of, dryness, scaling, in a stocking fashion, no fissure(s) present, B/L , Skin exam reveals normal texture, elasticity, and turgor. There are no masses. The interspaces are clear Orthopedic MUSCLE STRENGTH: 5/5 all groups in a symm etrical fashion , B/L General Examination GENERAL APPEARANCE: Reveals a pleasant, alert, well- nourished, well-developed, well hydrated individual, who demonstrates proper attention to hygiene/body habitus, and is in no acute distress, Pt serves as own historian for office visit today ORIENTED: person, place, and t reji Vascular DP PULSES (B): 3/4, B/L PT PULSES (B): 3/4, B/L CAPILLARY FILL TIME: immediate, all digi ts, B/L TEMPERTURE GRADIENT (C): warm to cool, p roximal to distal, B/L TROPHIC CONDITION-TEXTURE/ELASTICITY/TURGOR/HAIR GROWTH (B): normal, B/L EDEMA (C): absent, B/L PIGMENTATION: normal, B/L Nails NAILS are: Elongated, overg rown, dystrophic, lytic, greater than 3mm thick, discolored and friable with crumbly malodorous subungual debris, with pain on palpation, TA, T5
--- OUTSIDE RECORDS SUMMARY | 2024-06-29 18:43 | XMS_ITS ---
Author Organization [facility] Address [address] [place] [address] Care Team Providers Care Primer Expeditor And Drier Name Role Phone Chico Church MD Primary Care Provider Unavail Mckenna Boyce Unavailable [phone] REASON FOR VISIT Lab results Medications Medication SIG (Take, Route, Fr equency, Duration) Notes Start Date End Date Status Terbinafine HCl 250 MG 1 tablet Orally O nce a day for 30 days 04/20/2024 Active Encounters Encounter Location Date Provider Diagnosis [address] [address] 04/20/2024 Mckenna Rodriguez Plan Of Treatment Medication Medication Name Sig Start Date Stop Date Notes Terbinafine HCl 250 MG 1 tablet Orally O nce a day for 30 days 04/20/2024 Next Appt Details Provider Name:Tiffanie cano, 07/21/2024 10:30:00 AM, [address] [place] [address], [phone], Provider Name:Mckenna edwards, 08/18/2024 03:30:00 PM, [address] [place] [address], [phone], Progress Notes * Ponce CHEN RDOB:[birth year] (59 yo M)Acc No.[id number]:04/20/2024 Patient:?Ponce CHEN :1965???Age:59 Y???Sex:Male Address:[address] [place] [address] * Refills? Start Terbinafine HCl Tablet, 250 MG, Orally, 30 Tablet, 1 tablet, Once a day, 30 days, Refills=1 * true * Date:? Generated for Cindy wood/Yoselyn/Bettie on:?06/29/2024 06:43 PM EST
--- OUTSIDE RECORDS SUMMARY | 2024-06-29 18:43 | XMS_ITS ---
Author Organization Chico Church DO, FAC Address [address] [place], [place] [id number] Care Team Providers Care Human Resources Trainer Name Role Phone Chico Church Primary Care Provider [phone] REASON FOR VISIT 6 month f/u SOCIAL HISTORY Sex Assigned At : Social History Observation Description Sex Assigned At Male Encounters Encounter Location Date Provider Diagnosis Chico Church DO, [facility]AC[address] [phone] 06/29/2024 Chico Church PLAN OF TREATMENT No Information
--- OUTSIDE RECORDS SUMMARY | 2024-06-29 18:43 | XMS_ITS ---
Author Organization Chico Church DO, FACP Address [address] [place], [place] [id number] Care Team Providers Care Diet Counselor Name Role Phone Chico Church Primary Care Provider [phone] ALLERGIES No Known Allergies REASON FOR VISIT lump, RLQ abdomen MEDICATIONS Medication SIG (Take, Route, Frequency, Duration) Notes Start Date End Date Status Dicyclomine HCl 20 MG 1 tablet as needed Orally Once a day Active Simvastatin 20 MG 1 tablet in the evening Orally Once a day 12/30/2023 Active hydroCHLOROthiazide 50 MG 1 tablet in th e morning Orally Once a day Active Metoprolol Succinate ER 100 MG 1 tablet Orally Once a day Active Diclofenac Sodium 75 MG 1 tablet with fo od as needed Orally Twice a day Active SOCIAL HISTORY Tobacco Use: Social History Observation Description Date Details (start date - stop date) Former Smoker NA - NA Sex Assigned At : Social History Observation Description Sex Assigned At Male Tobacco Use/Smoking Question Answer Notes Patient is a former smoker How long has it been since y ou last smoked? > 10 years Additional Findings: Tobacco Non-User Fo rmer smoker, currently using no form of tobacco Alcohol Screen Question Answer Notes Did you have a drink contain ing alcohol in the past year? Yes How often did you have a dri nk containing alcohol in the past year? 2 to 3 times a week (3 points) How many drinks did you have on a typical day when you were drinking in the past year? 1 or 2 drinks (0 point) How often did you have 6 or more drinks on one occasion in the past year? Never (0 point) Points 3 Interpretation Negative VITAL SIGNS BMI 36.75 kg/m2 03/16/2024 Blood pressure systolic 126 mm Hg 03/16/20 24 Blood pressure diastolic 68 mm Hg 024 Height 72 in 03/16/2024 Weight 271 lbs 03/16/2024 Encounters Encounter Location Date Provider Diagnosis Chico Church , FACP [address] [place] [phone] 03/16/2024 Chico Church Abdominal mass, unsp ecified abdominal location R19.00 ; Essential hypertension I10 and Hypercholesterolemia E78.00 ASSESSMENTS Encounter Date Diagnosis Assessment Notes Treatment Notes Treatment Clinical Notes 03/16/2024 Abdominal mass, unspecified abdominal location (ICD-10 - R19.00) 03/16/2024 Essential hypertensi on (ICD-10 - I10) 03/16/2024 Hypercholesterolemia (ICD-10 - E78.00) PLAN OF TREATMENT Medication Medication Name Sig Start Date Stop Date Notes Dicyclomine HCl 20 MG 1 tablet as needed Orally Once a day Simvastatin 20 MG 1 tablet in the even ing Orally Once a day 12/30/2023 hydroCHLOROthiazide 50 MG 1 tablet in th e morning Orally Once a day Metoprolol Succinate ER 100 MG 1 tablet Orally Once a day Diclofenac Sodium 75 MG 1 tablet with fo od as needed Orally Twice a day Pending Test Test Name Order Date XR chest 4 views 03/16/2024 Progress Notes * Examination Category Sub-Category Detail Notes General Examination GENERAL APPEARANCE: in no ac umberto distress, well developed, well nourished HEAD: normocephalic, atrau matic HEART: no murmurs, regular rate and rhythm, S1, S2 normal LUNGS: clear to auscultatio n bilaterally ABDOMEN: normal, bowel sounds present, soft, nontender, nondistended, small lump noted, right lateral abdomen SKIN: warm and dry EXTREMITIES: no edema PSYCH: alert, oriented, cog nitive function intact
== END 2024-06-29 15:36 | disposition home or self-care (01) ==
LOC: HO.HMCSH 14:55
PROVIDERS: PCP Internal Medicine; Visit Provider Internal Medicine
DX: I10 Essential (primary) hypertension (principal); J06.9 Acute upper respiratory infection, unspecified; E66.812 Obesity, class 2; E66.01 Morbid (severe) obesity due to excess calories

== ENCOUNTER 2024-08-23 15:25 | Outpatient (AMB) | payer BC, SELFPAY ==
[2024-08-23 15:27] VITALS: BP 136/82; PULSE 72; RESP 16; TEMP 36.4; O2SAT 99; BMI 36.0
--- NOTE | 2024-08-23 15:27 | A.OFFPC_ITS ---
Vital Signs 08/23/24 15:27 Height 6 ft 0.5 in Weight 269 lb BMI 36.0 BP 136/82 Respiration 16 Pulse 72 Pulse Source Pulse Oximeter Temp 97.6 F Temp Source Temporal Artery Scan Pulse Oximetry (%) 99 Oxygen Delivery Method Room Air Intake Visit Reasons: torn tendon repair, ankle Gluer Machine Operator Required: No Accompanied by: Self / Same As Patient Allergies SEASONAL ALLERGIES Allergy (Mild, Uncoded 08/23/24 15:43) WATERY EYES,NASAL CONGESTION.SNEEZING Medication List - Last Reconciled 08/23/24 by Sammie Cote PA-C dicyclomine 20 mg PO DAILY diphenhydramine HCl (Benadryl) 25 mg PO TID PRN hydrochlorothiazide 50 mg PO DAILY metoprolol succinate ER 100 mg PO DAILY simvastatin 20 mg PO BEDTIME 90 days Tobacco use date assessed: 08/23/24 Dental Screening Dental Screen Date: 08/23/24 Did you have a dental visit in the last 12 months?: Yes Did you have a dental problem in the last 6 months where you did not have access to dental care?: No Was dental information given to patient?: Patient has dentist HPI torn tendon repair, ankle HPI Details The patient is a 59-year-old male presenting with the need for preoperative clearance for left ankle surgery. He has a history of a torn ligament in the left ankle, scheduled for surgical repair on September [address] Mao at [facility] in [place], [place]. The patient's medical history includes essential hypertension managed with hydrochlorothiazide and metoprolol, obesity, osteoarthritis of the right thumb, and esophageal spasms controlled with Dicyclomine. He has no reported issues with anesthesia. There is no history of smoking, which may beneficially impact his surgical risk profile. Social History - No reported use of tobacco - Engages with family, including Yara cano anita Pollo, with family connections noted in the healthcare field [facility] Medical History Class 2 severe obesity with body mass index (BMI) of 35 to 39.9 with serious comorbidity GERD (gastroesophageal reflux disease) Hypothyroid Hypercholesteremia Surgical History History of colonoscopy (~02/06/18) Family History Father DVT (deep venous thrombosis) Mother Breast cancer Social History Housing: House Alcohol intake: current Alcohol intake frequency: holidays/special occasions only Patient Tobacco Use Status: Former Tobacco user service: No Current occupational status: employed Cognitive needs: No Hearing needs: No Vision needs: Yes (reading glasses) Questionnaire PHQ-9 Over the last 2 weeks, how often have you been bothered by any of the following problems? 1. Little interest or pleasure in doing things: not at all 2. Feeling down, depressed, or hopeless: not at all 3. Trouble falling or staying asleep, or sleeping too much: not at all 4. Feeling tired or having little energy: not at all 5. Poor appetite or overeating: not at all 6. Feeling bad about yourself - or that you are a failure or have let yourself or your family down: not at all 7. Trouble concentrating on things, such as reading the newspaper or watching television: not at all 8. Moving or speaking so slowly that other people could have noticed. Or the opposite - being so fidgety or restless that you have been moving around a lot more than usual: not at all 9. Thoughts that you would be better off or of hurting yourself in some way: not at all Total score: 0 Depression Screening Interpretation: Negative Depression Screening Done: Yes 87405 - PHQ-9 Billing: Yes Source: Developed by Drs. Chico Sitll, Karolina Mei, Isaias Tejeda and colleagues, with an educational rosa maria from [employer]. Thrive Questionnaire Date Thrive assessed: 08/23/24 I am a: Patient What is your living situation today?: I have a steady place to live Within the past 12 months, did the food you bought not last and you didn't have the money to get more?: Never true Within the past 12 months, did you worry whether your food would run out before you got money to buy more?: Never true Do you have trouble paying for medicines?: No Do you have trouble getting transportation to medical appointments?: No Do you have trouble paying your heating and electricity bill?: No Do you have trouble taking care of your child, family member or friend?: No Do you have trouble with day-to-day activities such as bathing, preparing meals, shopping, managing finances, etc.?: No Are you currently unemployed and looking for a job?: No Are you interested in more education?: No Please select the resources that you would like help with: None THRIVE Score: 0 AUDIT C Alcohol Use Questionnaire (AUDIT-C) 1. How often do you have a drink containing alcohol?: Monthly or less 3. How often do you have six or more drinks on one occasion?: Never Total Score: 1 Score Reviewed/Action Taken: No EMANUEL-7 AMB Questionnaire EMANUEL-7 Date EMANUEL - 7 assessed: 08/23/24 Feeling nervous, anxious, or on edge: 0 = Not at all Not being able to stop or control worryin = Not at all Worrying too much about different things: 0 = Not at all Trouble relaxin = Not at all Being so restless that it is hard to sit still: 0 = Not at all Becoming easily annoyed or irritable: 0 = Not at all Feeling afraid as if something awful might happen: 0 = Not at all Total EMANUEL-7 score (0-4 normal; 5-9 mild; 10-14 moderate; 15-21 severe): 0 Source: Developed by Drs. Chico Still, Karolina Mei, Isaias Tejeda and colleagues, with an educational rosa maria from [employer]. EMANUEL-7 Assessment Billing EMANUEL-7 Assessment Tool: EMANUEL-7 Assessment 28369 Review of Systems Const Details: - Cardiovascular: Reports hypertension - Musculoskeletal: Reports osteoarthritis of the right thumb; reports torn ligament in the left ankle scheduled for surgical repair - Gastrointestinal: Reports esophageal spasms controlled with Dicyclomine - General: Reports obesity - Respiratory: Denies smoking Physical exam (Primary Care) Vital Signs: Last Vital Signs Temp 97.6 F 08/23/24 15:27 Pulse 72 08/23/24 15:27 Resp 16 08/23/24 15:27 BP 136/82 08/23/24 15:27 Pulse Ox 99 08/23/24 15:27 Oxygen Delivery Method Room Air 08/23/24 15:27 Care Plan Goal for BP management: <130/90 at Goal BMI result Body Mass Index 36.0 BMI Assessment/Plan discussion: High BMI High, discussed plan: lifestyle, weight reduction, dietary, physical activity, alcohol moderation and other Tobacco/Smoking Status: Tobacco use Status Tobacco use date assessed 08/23/24 08/23/24 15:35 Patient Tobacco Use Status Former Tobacco user 08/23/24 15:35 PHQ-9: PHQ-9 Score PHQ-9: Total score 0 08/23/24 15:35 Depression Screening Interpretation: Negative Thrive Assessment: Date of Thrive Assessment Date Thrive assessed 08/23/24 08/23/24 15:35 Const Other: Appearance: Alert. Oriented X3. No acute distress. Head: Normal external exam. Normocephalic. Atraumatic. Eyes: Pupils are equal, round, and reactive to light. Extraocular movements intact. Conjunctiva and sclera normal. Eyelids normal. Throat: Pharynx normal. Uvula midline. Moist mucous membranes. Neck: Normal inspection. Neck supple. Full range of motion. Cardiovascular: Normal heart rate and rhythm. Heart sound normal. No murmurs noted. Pulses normal throughout. Respiratory: No respiratory distress. Painless inspiration. Breath sounds normal. No wheezes/rales/rhonchi noted. Chest nontender. No accessory muscle usage noted or decreased air movement noted. Back: Full range of motion noted. Skin: Skin warm and dry. Normal skin color. Normal skin turgor. No rashes/lesions/lacerations noted. Extremities: Left ankle injury noted with a torn ligament. Patient moving all extremities with good range of motion. Neuro: Oriented X 3. No motor deficit. No sensory deficit. Reflexes normal. Results Reviewed Results Reviewed: - Labs: CBC, basic metabolic panel, liver enzymes, lipid panel, thyroid function test, PSA, magnesium, vitamin D, B12 - Tests and diagnostics: Chest x-ray, EKG, hemoglobin A1c Coding Level of Care Code Est Pt Level 4 (23951) Complex EM visit Add On G2211 Diagnoses Pre-operative clearance Z01.818 Left ankle injury S99.912A Torn ligament T14.8XXA Hypertension I10 Class 2 severe obesity with body mass index (BMI) of 35 to 39.9 with serious comorbidity E66.812; E66.01 Osteoarthritis of right thumb M18.11 Additional Codes PHQ-9 - 83355 - PHQ-9 Billing: Yes ([id number]) EMANUEL-7 Assessment Billing - EMANUEL-7 Assessment Tool: EMANUEL-7 Assessment 44370 ([id number]) Assessment & Plan Assessment & Plan (1) Pre-operative clearance: Code(s): Z01.818 - Encounter for other preprocedural examination Category: Medical Plan: Clearance assessments and blood work were scheduled; surgical planning by Dr. Mao was reviewed. Condition is chronic and stable continue to monitor. (2) Left ankle injury: Code(s): S99.912A - Unspecified injury of left ankle, initial encounter Category: Medical Plan: Clearance assessments and blood work were scheduled; surgical planning by Dr. Mao was reviewed. Condition is chronic and stable continue to monitor. (3) Torn ligament: Code(s): T14.8XXA - Other injury of unspecified body region, initial encounter Category: Medical Plan: Clearance assessments and blood work were scheduled; surgical planning by Dr. Mao was reviewed. Condition is chronic and stable continue to monitor. (4) Hypertension: Code(s): I10 - Essential (primary) hypertension Category: Medical Plan: The patient maintains treatment with hydrochlorothiazide and metoprolol; current management will be continued. Condition is chronic and stable continue to monitor. (5) Class 2 severe obesity with body mass index (BMI) of 35 to 39.9 with serious comorbidity: Code(s): E66.812 - Obesity, class 2; E66.01 - Morbid (severe) obesity due to excess calories Category: Medical Plan: Lifestyle modifications were advised; emphasis placed on improving dietary habits and increasing physical activity. Condition is chronic and stable continue to monitor. (6) Osteoarthritis of right thumb: Code(s): M18.11 - Unilateral primary osteoarthritis of first carpometacarpal joint, right hand Category: Medical Plan: Management remains as prior. Non-pharmacological interventions were encouraged. Condition is chronic and stable continue to monitor. Plan Plan Patient was informed and verbally consented to the use of an ambient scribe for clinic note documentation during this visit. 1. Torn Ligament Of The Left Ankle Clearance assessments and blood work were scheduled; surgical planning by Dr. Mao was reviewed. 2. Essential Hypertension The patient maintains treatment with hydrochlorothiazide and metoprolol; current management will be continued. 3. Osteoarthritis Of The Right Thumb Management remains as prior. Non-pharmacological interventions were encouraged. 4. Esophageal Spasms Continuation of Dicyclomine as needed should provide symptomatic relief. 5. Obesity Lifestyle modifications were advised; emphasis placed on improving dietary habits and increasing physical activity. I discussed with the patient the diagnosis of torn ligament in the left ankle and the preoperative procedures, including the necessity of fasting before lab tests. We outlined the specific blood work and EKG required for surgical clearance. We addressed hypertension management and confirmed the current regimen's efficacy. Discussed non-pharmacological means to assist with ost eoarthritis and weight management as part of supporting overall wellness. Potential lifestyle interventions to address obesity were covered, with an emphasis on pre-surgery preparation. The patient denied historical surgical complications, and etiology of esophageal spasms was considered stable under current management. Orders: Orders XR chest 2V Today E66.01 - Morbid (severe) obesity due to excess calories, E66.812 - Obesity, class 2, I10 - Essential (primary) hypertension, S99.912A - Unspecified injury of left ankle, initial encounter, T14.8XXA - Other injury of unspecified body region, initial encounter, Z01.818 - Encounter for other preprocedural examination TSH reflex Free T4 Today Z00.00 - Encounter for general adult medical examination without abnormal findings PSA,Total (Free>4and<10) Today Z00.00 - Encounter for general adult medical examination without abnormal findings Magnesium Today Z00.00 - Encounter for general adult medical examination without abnormal findings Vitamin B12 and Folate Today Z00.00 - Encounter for general adult medical examination without abnormal findings ECG 12 lead EKG Today S99.912A - Unspecified injury of left ankle, initial encounter, T14.8XXA - Other injury of unspecified body region, initial encounter, Z01.818 - Encounter for other preprocedural examination Vitamin D 25-OH Total Today Z00.00 - Encounter for general adult medical examination without abnormal findings Patient Instructions: - Complete preoperative blood work and EKG as scheduled. - Fast before the lab tests as instructed. - Continue current medications as prescribed. - Maintain healthy lifestyle choices, including diet and exercise, to aid r ecovery post-surgery. - Avoid NSAIDs like aspirin and ibuprofen before surgery; use Tylenol for pain if needed. - Reach out with any new or worsening symptoms. - Note the surgery date of September 08 for left ankle repair, and notify if there are any issues.
--- OUTSIDE RECORDS SUMMARY | 2024-08-23 15:28 | XMS_ITS | Clinical Summary ---
Author Organization Formerly [facility] Address [address] [place] [address] Care Team Providers Care Transitional Nurse Name Role Phone Pcp, No Primary Care Provider Unavailabl e Allergies No known active allergies Encounters Date Type Department Care Team Description 08/10/2024 2:35 PM EDT [facility] [address] [address] 08/10/2024 1:30 PM EDT [place] [address] Milad Mao MD Left ankle pain, unspecified chronicity (Primary Dx) from Last 3 Months Social History Tobacco Use Types Packs/Day Years Used Date Smoking Tobacco: Never Assessed Sex and Gender Information Value Date Recorded Sex Assigned at Male 08/04/2024 2:03 PM EDT Legal Sex Male 6:53 PM EST Gender Identity Male 08/04/2024 2:03 PM EDT Sexual Orientation Asexual 08/04/2024 2: 03 PM EDT Plan of Treatment Upcoming Encounters Date Type Department Care Team (Late st Contact Info) Description 09/08/2024 9:45 AM EDT [facility]ointment [facility] [address] [phone] Milad Mao MD [address] [place] [address] 09/08/2024 9:45 AM EDT [facility]ointment [facility] [address] [phone] Fariha Emmanuel, CATH LAB MANAGER [address] [address] 09/14/2024 1:15 PM EDT [facility] Visit [facility] [address] [address] Fariha Emmanuel, CATH LAB MANAGER [address] [address] 09/28/2024 1:00 PM EDT [facility] [address] [address] Milad Mao MD [address] [place] [address] 10/19/2024 1:00 PM EDT [facility] [address] [address] Fariha Emmanuel, CATH LAB MANAGER [address] [address] Health Maintenance Due Date Last Done Comments Hepatitis C Virus Screening 1965 HIV Screening 1978 DTaP/Tdap/Td Vaccines (1 - Tdap) 02/15/1984 Hepatitis B Vaccines (1 of 3 - 19+ 3-dose series) 02/02 Colonoscopy 2010 Pneumococcal Vaccines 50+ (1 of 1 - PCV) 2015 Zoster (Shingles) Vaccine (1 of 2) 2015 Influenza Vaccine 12/04/2023 COVID-19 Vaccine ( - season) 2024 Procedures Procedure Name Priority Date/Time Associated Diagnosis Comments XR FOOT 3+ VIEWS-LEFT Routine 08/10/2024 2:42 PM EDT Left ankle pain, unspecified chronicity XR ANKLE 3+ VIEWS-LEFT Routine 08/10/2024 2:42 PM EDT Left ankle pain, unspecified chronicity from Last 3 Months Results * XR Foot 3+ views-Left (08/10/2024 2:42 PM EDT) Narrative [facility] - 08/10/2024 2:42 PM EDT This exam was performed in office at [facility] and images reviewed by orthopedic provider. ??Any findings are documented within ambulatory encounter note on date of service. Milad Mao MD [facility] ORDERA BLES Final Result Performing Organization Address [facility] de Phone Number OA * XR Ankle 3+ views-Left (08/10/2024 2:42 PM EDT) Narrative [facility] - 08/10/2024 2:42 PM EDT [facility] and images reviewed by orthopedic provider. ??Any findings are documented within ambulatory encounter note on date of service. Milad aMo MD [facility] ORDERA BLES Final Result Performing Organization Address [facility] de Phone Number [facility] from Last 3 Months Insurance [facility] [place] - PPO Care Teams Transitional Nurse Relationship Specialty Start Date End Date Pcp, No PCP - General General Medicine 08/10/24
--- OUTSIDE RECORDS SUMMARY | 2024-08-23 15:28 | XMS_ITS ---
Author Name [facility] Organization Unknown Problems Problem Status Onset Date Problem Type Date of Resoluti on Source Left ankle pain, unspecified chronicity active EncounterDiagnosisAct CCT Encounters Encounter Type Encounter Reason Primary Diagnosis Location Date Ambulatory [employer] 08/10/2024 Ambulatory Pain in left ankle and joints of left foot Pain in left ankle and joints of left foot [email or web address] 08/10/2024 Care Team Organization Name Specialty Phone Email Start Date End Da te [email or web address] PCP [employer] 08/14/2024 [email or web address] NO PCP Primary Care 08/04/2024 [email or web address] 07/28/2024
== END 2024-08-23 15:58 | disposition home or self-care (01) ==
LOC: HO.HMCSH 15:25
PROVIDERS: PCP Internal Medicine; Visit Provider Physician Assistant Medical
DX: Z01.818 Encounter for other preprocedural examination (principal); S99.912A Unspecified injury of left ankle, initial encounter; T14.8XXA Other injury of unspecified body region, initial encounter; I10 Essential (primary) hypertension; E66.812 Obesity, class 2; E66.01 Morbid (severe) obesity due to excess calories; M18.11 Unilateral primary osteoarthritis of first carpometacarpal joint, right hand

== ENCOUNTER → 2024-08-23 15:25 | Outpatient (BNVA) | payer BC, SELFPAY | PROVIDERS: PCP Internal Medicine; Visit Provider Physician Assistant Medical | DX: Z01.818 Encounter for other preprocedural examination (principal); S93.402A Sprain of unspecified ligament of left ankle, initial encounter; I10 Essential (primary) hypertension; E66.01 Morbid (severe) obesity due to excess calories; Z68.36 Body mass index [BMI] 36.0-36.9, adult; M18.11 Unilateral primary osteoarthritis of first carpometacarpal joint, right hand; X58.XXXA Exposure to other specified factors, initial encounter; Y93.9 Activity, unspecified; Y92.9 Unspecified place or not applicable; Y99.9 Unspecified external cause status | CPT/HCPCS: 96127 ==

== ENCOUNTER 2024-08-27 07:13 | Outpatient (REF) | payer BC, SELFPAY ==
--- NOTE | ~2024-08-27 | XR_ITS ---
EXAMINATION: XR CHEST CLINICAL INFORMATION: T14.8XXA - Other injury of unspecified body region, initial encounter COMPARISON: July 21, 2023. TECHNIQUE: 2 views of the chest were obtained. FINDINGS: No consolidation, pleural effusion or pneumothorax. No hyperinflation. Cardiomediastinal silhouette size is normal. Multilevel thoracic spondylosis. XR/XR chest 2V IMPRESSION: No acute airspace disease. Stable chest. Electronically signed by: Abel Lomax MD 08/27/2024 08:04 AM EDT
--- OUTSIDE RECORDS SUMMARY | 2024-08-27 07:16 | XMS_ITS | Clinical Summary ---
Author Organization [facility] Address [address] [place] [address] Care Team Providers Care Dip Tanker Name Role Phone Pcp, No Primary Care Provider Unavailabl e Allergies No known active allergies Encounters Date Type Department Care Team Description 08/26/2024 CC Surg Order [facility] [address] [phone] Milad Mao MD Peroneal tendonitis, left (Primary Dx) 08/10/2024 2:35 PM EDT [place] [address] 08/10/2024 1:30 [place] [address] Milad Mao MD Left ankle pain, unspecified [...] 09/08/2024 9:45 AM EDT [facility]ointment [facility] [address] [address] Milad Mao MD [address] [place] [address] 09/08/2024 9:45 AM EDT [facility]ointment [facility] [address] [address] Fariha Emmanuel APRN [address] [place] [address] 09/14/2024 1:15 PM EDT [facility] [address] [address] Fariha Emmanuel APRN [address] [place] [address] 09/28/2024 1:00 PM EDT [facility] [address] [address] Milad Mao MD [address] [place] [address] 10/19/2024 1:00 PM EDT [facility] [address] [address] Fariha Emmanuel APRN [address] [place] [address] Health Maintenance Due Date Last Done Comments Hepatitis C Virus Screening 1965 HIV Screening 1978 DTaP/Tdap/Td Vaccines (1 - Tdap) 02/15/1984 Hepatitis B Vaccines (1 of 3 - 19+ 3-dose series) 02/02 Colonoscopy 2010 Pneumococcal Vaccines 50+ (1 of 1 - PCV) 2015 Zoster (Shingles) Vaccine (1 of 2) 2015 Influenza Vaccine 12/04/2023 COVID-19 Vaccine (1 - season) 2024 Procedures Procedure Name Priority Date/Time Associated Diagnosis Comments XR FOOT 3+ VIEWS-LEFT Routine 08/10/2024 2:42 PM EDT Left ankle pain, unspecified chronicity XR ANKLE 3+ VIEWS-LEFT Routine 08/10/2024 2:42 PM EDT Left ankle pain, unspecified chronicity from Last 3 Months Results * XR Foot 3+ views-Left (08/10/2024 2:42 PM EDT) Narrative [facility] - 08/10/2024 2:42 PM EDT This exam was performed in office at [facility] and images reviewed by orthopedic provider. ??Any findings are documented within ambulatory encounter note on date of service. Milad Mao MD [facility] ORDERA BLES Final Result Performing Organization Address [place] de Phone Number OA * XR Ankle 3+ views-Left (08/10/2024 2:42 PM EDT) Narrative [facility] - 08/10/2024 2:42 PM EDT This exam was performed in office at [facility] and images reviewed by orthopedic provider. ??Any findings are documented within ambulatory encounter note on date of service. Milad Mao MD [facility] ORDERA BLES Final Result Performing Organization Address [place] de Phone Number [facility] from Last [address] [place] [address] [address] [place] - PPO Care Teams Dip Tanker Relationship Specialty Start Date End Date Pcp, No PCP - General General Medicine 08/10/24
--- OUTSIDE RECORDS SUMMARY | 2024-08-27 07:16 | XMS_ITS | Patient Health Record ---
[facility] Organization [facility] Address [address] [facility] [place] [address] Care Team Providers Care Concaving Machine Operator Name Role Phone Chico Church MD Primary Care Provider Unavail able Mckenna Rodriguez Unavailable [phone] JacquelineTiffanie cano Unavailable [phone] Allergies No Known Allergies Reason For Referral No Information Medications Medication SIG (Take, Route, Fr equency, Duration) Notes Start Date End Date Status hydroCHLOROthiazide Active Ammonium Lactate 12 % 1 application Exte rnally to affected areas of dry skin to feet except for between the toes Twice a day for 30 days Act ledy Metoprolol Succinate Active Dicyclomine HCl Acti ve Simvastatin Active Walking Boot/Pneumatic As directed Wear Daily for Until further notice 06/22/2024 Active Medrol lisa 4mg as directed orally a s directed for 6 days 06/22/2024 Active Terbinafine HCl 250 MG 1 tablet Orally O nce a day for 30 days 04/20/2024 Active Social History Tobacco Use: Social History [...] Signs Blood pressure diastolic 80 mm Hg 07/16/2024 Height 6ft3in in 07/16/2024 Blood pressure systolic 130 mm Hg 07/16/2024 Weight 270 lbs 07/16/2024 BMI 33.74 kg/m2 07/16/2024 Encounters Encounter Location Date Provider Diagnosis [address] [address] 04/08/2024 Mckenna Rodriguez Pain in right toe(s) M79.674 ; Onychomycosis B35.1 ; Pain in left toe(s) M79.675 and Xerosis of skin L85.[address] [address] 06/22/2024 Tiffanie Edmond Acute left ankle jose m n M25.572 ; Sprain of anterior talofibular ligament of left ankle, initial encounter S93.492A ; Sprain of calcaneofibular ligament of left ankle, initial encounter S93.412A and Strain of peroneal tendon of left foot, initial encounter S86.312A [address] [address] 07/16/2024 Tiffanie Phillipsa Acute left ankle jose m n M25.572 ; Sprain of other ligament of left ankle, subsequent encounter S93.492D ; Sprain of calcaneofibular ligament of left ankle, subsequent encounter S93.412D and Strain of peroneal tendon of left foot, subsequent encounter S86.312D [address] [address] 03/26/[address] [address] 04/20/[address] [address] 07/12/[address] [address] 07/16/[address] [address] 07/16/2024 Mckenna Rodriguez Assessments Encounter Date Diagnosis (ICD Code) Assessment Notes Treatment Notes Treatment Clinical Notes Section Notes 04/08/2024 Pain in right toe(s) (ICD-10 - M79.674) 04/08/2024 Onychomycosis (ICD-10 - B35.1) 06/22/2024 Acute left ankle pain (ICD-10 - M25.572) 06/22/2024 Sprain of anterior talofibular ligament of left ankle, initial encounter (ICD-10 - S93.492A) Dx New problem, Prognosis Uncertain (4) 07/16/2024 Sprain of other ligament of left ankle, subsequent encounter (ICD-10 - S93.492D) 07/16/2024 Acute left ankle pain (ICD-10 - M25.572) 04/08/2024 Pain in left toe(s) (ICD-10 - M79.675) 07/16/2024 Sprain of calcaneofibular ligament of left ankle, subsequent encounter (ICD-10 - S93.412D) 06/22/2024 Sprain of calcaneofibular ligament of left ankle, initial encounter (ICD-10 - S93.412A) Dx New problem, Prognosis Uncertain (4) 04/08/2024 Xerosis of skin (ICD-10 - L85.3) 06/22/2024 Strain of peroneal tendon of left foot, initial encounter (ICD-10 - S86.312A) Dx New problem, Prognosis Uncertain (4) 07/16/2024 Strain of peroneal tendon of left foot, subsequent encounter (ICD-10 - S86.312D) Plan Of Treatment Pending Test Test Name Order Date MRI : Ankle, left 07/16/2024 MRI : Foot, left 07/16/2024 X ray : Ankle, left 3V 06/22/2024 *Liver Function Test (LFT) 04/08/2024 X ray : Foot, left 3V 06/22/2024 Insurance Providers Payer Name Payer Address Payer Phone Subscriber Number Group Number Insured Name Patient Relationship to Insured Coverage Start Date Coverage End Date [facility] [employer] [address] [place] [address] [id number] Ponce Chen Self - patient is the insured Medical (General) History Medical History History ICD Code Back,Hip,and Knee pain covid-19 High Blood Pressure sinusitis Chicken pox Surgical History Surgery Date(Month/Year) sinus surgery lymphectomy
--- OUTSIDE RECORDS SUMMARY | 2024-08-27 07:16 | XMS_ITS ---
Author Organization [facility] Address [address] [place] [address] Care Team Providers Care Surgical Oncologist Name Role Phone Lynnette MELENDEZ, [place] Primary Care Provider Unavail Mckenna Boyce Unavailable [phone] REASON FOR VISIT Cx appt Encounters Encounter Location Date Provider Diagnosis [facility] [address] [place] [address] 07/16/2024 Mckenna Rodriguez Plan Of Treatment No Information Progress Notes * Ponce CHEN RDOB:[birth year] (59 yo M)Acc No.[id number]:07/16/2024 Patient:?Ponce CHEN :1965???Age:59 Y???Sex:Male Address:[address] [place] [id number] * true * Date:? Generated for Terei nina/Yoselyn/eTransmitting on:?08/27/2024 07:16 AM EDT
--- OUTSIDE RECORDS SUMMARY | 2024-08-27 07:16 | XMS_ITS | Encounter Summary ---
Author Organization [facility] Address [address] [place] [address] Care Team Providers Care Tap Builder Name Role Phone Pcp, No Primary Care Provider Unavailabl e Reason for Referral * Outpatient Surgery (Routine) - Pending Review Specialty Diagnoses / Procedures Referred By Sarah cantu Referred To Contact Orthopedic Surgery Diagnoses Peroneal tendonitis, left Milad Mao MD [address] [place] [address] Phone: tel: fax: Referral ID Status Reason Start Date Expiration Date V isits Requested Visits Authorized [id number] Pending Review 08/26/2024 08/27/2025 1 1 Question Answer Primary Procedure: 19181 - SCP ANK DEBRIDEMENT Additional Procedure(s): 22153 - BROSTROM/LAT LIG RECONSTRUCTION, 80366 - REPAIR,FLEXOR TNDN;S, 18547 - EXTEN TEND TENOSYNOVECTOMY Procedure: LEFT ANKLE ARTHROSCOPY, LEFT ANKLE PERONEAL TENDON REPAIR, ALLOGRAFT TENODESIS, LEFT ANKLE BROSTROM RECONSTRUCTION Surgery Date 09/08/2024 Laterality: Left Performing Location: [facility] Duration (Mins): 120 Admission: Outpatient Anesthesia: GENERAL, POPLITEAL / SAPHENOUS BLOCK Workers Comp? No Equipment: SUPINE, MINI C-ARM, BIOBRACE ALLOGRAFT, 2.5 SCOPE, ARTHREX FIBERTECH SUTURES PA Assist: CORINNA EMMANUEL Encounter Details Date Type Department Care Team (Late st Contact Info) Description 08/26/2024 CC Surg Order [facility] [address] [phone] Milad Mao MD [address] [place] [address] Peroneal tendonitis, left (Primary Dx) Social History Tobacco Use Types Packs/Day Years Used Date Smoking Tobacco: Never Assessed Sex and Gender Information Value Date Recorded Sex Assigned at Male 08/04/2024 2:03 PM EDT Legal Sex Male 6:53 PM EST Gender Identity Male 08/04/2024 2:03 PM EDT Sexual Orientation Asexual 08/04/2024 2: 03 PM EDT documented as of this encounter Plan of Treatment Upcoming Encounters Date Type Department Care Team (Late st Contact Info) Description 09/08/2024 9:45 AM EDT Appointment [facility] [address] [address] Milad Mao MD [address] [place] [address] 09/08/2024 9:45 AM EDT Appointment [facility] [address] [address] Corinna Emmanuel, CELL STRIPPER [address] [address] 09/14/2024 1:15 PM EDT Office [facility] [address] [address] Corinna Emmanuel, CELL STRIPPER [address] [address] 09/28/2024 1:00 PM EDT [facility] [address] [address] Milad Mao MD [address] [place] [address] 10/19/2024 1:00 PM EDT [facility] [address] [address] Corinna Emmanuel, CELL STRIPPER [address] [address] Scheduled Referrals Name Type Priority Associated Diagnoses Order Schedule LEFT ANKLE ARTHROSCOPY, LEFT ANKLE PERONEAL TENDON REPAIR, ALLOGRAFT TENODESIS, LEFT ANKLE BROSTROM RECONSTRUCTION Outpatient Referral Routine Peroneal tendonitis, left Ordered: 08/26/2024 documented as of this encounter Visit Diagnoses Diagnosis Peroneal tendonitis, left- Primary documented in this encounter Care Teams Tap Builder Relationship Specialty Start Date End Date Pcp, No PCP - General General Medicine 08/10/24 documented as of this encounter
--- OUTSIDE RECORDS SUMMARY | 2024-08-27 07:16 | XMS_ITS ---
Author Organization [facility] Address [address] [place] [address] Care Team Providers Care Nuclear Control Room Operator Name Role Phone Lynnette MELENDEZ, [place] Primary Care Provider Unavail able Mckenna Rodriguez Unavailable [phone] Tiffanie Edmond [phone] Encounters Encounter Location Date Provider Diagnosis [address] [address] 07/21/2024 Tiffanie Edmond Plan Of Treatment No Information Progress Notes * Ponce CHEN RDOB:[birth year] (59 yo M)Acc No.[id number]:07/21/2024 Progress Notes Patient:?Ponce CHEN Provider:?Tiffanie Edmond DPM :1965???Age:59 Y???Sex:Male Jaskaran e:07/21/2024 Address:[address] [place] [address] Pcp:Chico Church MD Subjective: * Chief Complaints: * ??? * Medical History:? Objective: * Vitals:? Assessment: Plan: * Treatment: * Images: * The named appointment provid er may or may not be the originator of this progress note, and it is not deemed complete until electronically signed by the appointment provider. Sign off status: Pending * Provider:?Tiffanie Edmond DPM Date:? Generated for Printi ng/Fajoseg/eTransmitting on:?08/27/2024 07:16 AM EDT
--- OUTSIDE RECORDS SUMMARY | 2024-08-27 07:16 | XMS_ITS ---
Author Organization [facility] Address [address] [place] [address] Care Team Providers Care Engineering Aide Name Role Phone Lynnette MELENDEZ, [place] Primary Care Provider Unavail Mckenna Boyce Unavailable [phone] Encounters Encounter Location Date Provider Diagnosis [address] [address] 08/18/2024 Mckenna Rodriguez Plan Of Treatment No Information Progress Notes * Ponce CHEN RDOB:[birth year] (59 yo M)Acc No.[id number]:08/18/2024 Progress Note Patient:?Ponce CHEN Provider:?Mckenna Rodriguez DPM :1965???Age:59 Y???Sex:Male Jaskaran e:08/18/2024 Address:[address] [place], [place] [id number] Pcp:Cihco Church MD Subjective: * Chief Complaints: * ??? * Medical History:? Objective: * Vitals:? Assessment: Plan: * Treatment: * Images: * The named appointment provid er may or may not be the originator of this progress note, and it is not deemed complete until electronically signed by the appointment provider. Sign off status: Pending * Provider:?Mckenna Rodriguez DPM Date:?0 08/18/2024 Generated for Terei ng/Fajoseg/eTransmitting on:?08/27/2024 07:16 AM EDT
--- NOTE | 2024-08-27 07:41 | ECG_ITS ---
Test Reason : pre op Blood Pressure : */* mmHG Vent. Rate : 59 BPM Atrial Rate : 59 BPM P-R Int : 166 ms QRS Dur : 100 ms QT Int : 450 ms P-R-T Axes : 28 -23 42 degrees QTcB Int : 445 ms Sinus bradycardia Incomplete right bundle branch block Minimal voltage criteria for LVH, may be normal variant ( R in aVL ) Borderline ECG When compared with ECG of 21-Jul-2023 14:07, No significant changes seen Referred By: Sammie Cote Electronically Signed By: SARIAH TEJADA
[2024-08-27 08:23] LABS: TSH reflex Free T4 3.85 uIU/mL (0.32-4.0); Vitamin D 25-OH Total 32.1 ng/mL (>30)
[2024-08-27 08:29] LABS: PSA,Total (Free>4and<10) 0.39 ng/mL (0.00-4.00)
[2024-08-27 08:36] LABS: Folate 12.2 ng/mL (> or = 4.0); Vitamin B12 474 pg/mL (200-900)
== END 2024-08-27 07:14 | disposition home or self-care (01) ==
LOC: HO.LAB 07:13
PROVIDERS: Physician Assistant Medical; PCP Internal Medicine; Visit Provider Internal Medicine
DX: Z01.818 Encounter for other preprocedural examination (principal); T14.8XXA Other injury of unspecified body region, initial encounter; S99.912A Unspecified injury of left ankle, initial encounter; I10 Essential (primary) hypertension; E66.812 Obesity, class 2; E66.01 Morbid (severe) obesity due to excess calories; Z12.5 Encounter for screening for malignant neoplasm of prostate; I45.10 Unspecified right bundle-branch block; R00.1 Bradycardia, unspecified
CPT/HCPCS: 36415; 71046; 82306; 82607; 82746; 83735; 84153; 84443; 93005

== ENCOUNTER → 2024-08-27 07:23 | Outpatient (BNV) | payer BC, SELFPAY | PROVIDERS: PCP Internal Medicine; Visit Provider Radiology Diagnostic Radiology | DX: T14.8XXA Other injury of unspecified body region, initial encounter (principal) | CPT/HCPCS: 71046 ==

== ENCOUNTER → 2024-08-27 07:41 | Outpatient (BNV) | payer BC, SELFPAY | PROVIDERS: PCP Internal Medicine; Visit Provider Internal Medicine | DX: R00.1 Bradycardia, unspecified (principal); I45.19 Other right bundle-branch block; R94.31 Abnormal electrocardiogram [ECG] [EKG] | CPT/HCPCS: 93010 ==

== ENCOUNTER 2025-01-04 15:29 | Outpatient (AMB) | payer BC, SELFPAY ==
[2025-01-04 15:39] VITALS: BP 148/73; PULSE 58; RESP 16; TEMP 36.8; O2SAT 99; BMI 35.0
--- NOTE | 2025-01-04 15:39 | A.OFFPC_ITS ---
Vital Signs 01/04/25 15:39 01/04/25 16:22 Height 6 ft 0.5 in Weight 261 lb 8 oz BMI 35.0 BP 148/73 H 122/71 Blood Pressure Location Rt femoral Position Sitting Respiration 16 Pulse 58 Pulse Source Pulse Oximeter Temp 98.2 F Temp Source Temporal Artery Scan Pulse Oximetry (%) 99 Oxygen Delivery Method Room Air Intake Visit Reasons: Neck Pain Director Food Safety Required: No Accompanied by: Self / Same As Patient Allergies SEASONAL ALLERGIES Allergy (Mild, Uncoded 01/04/25 16:22) WATERY EYES,NASAL CONGESTION.SNEEZING Medication List - Last Reconciled 01/04/25 by Sammie Cote PA-C dicyclomine 20 mg PO DAILY diphenhydramine HCl (Benadryl) 25 mg PO TID PRN hydrochlorothiazide 50 mg PO DAILY metoprolol succinate ER 100 mg PO DAILY simvastatin 20 mg PO BEDTIME 90 days Tobacco use date assessed: 08/23/24 Dental Screening Dental Screen Date: 08/23/24 Did you have a dental visit in the last 12 months?: Yes Did you have a dental problem in the last 6 months where you did not have access to dental care?: No Was dental information given to patient?: Patient has dentist HPI Neck Pain HPI Details The patient is a 59-year-old male presenting with left abdominal pain and bradycardia. The left abdominal pain began approximately three weeks ago without any known inciting event or trauma. The pain is localized to the left abdomen and does not radiate. The patient reports that the pain is exacerbated by lying on his side and alleviated by changing positions. The patient has a history of kidney stones, as revealed by a previous CT scan, which was not discussed with him at the time. He denies any history of alcohol abuse, which is relevant given the consideration of pancreatitis as a differential diagnosis. The patient also reports episodes of lightheadedness, particularly when transitioning from sitting to standing, which has been occurring for the past few weeks. His preoperative evaluation noted bradycardia, and he has a family history of medical radiation therapist who have expressed concern about this finding. Additional findings from previous imaging include diverticulosis, fatty liver, vascular calcification, and an inguinal hernia. The patient also has a history o f arthritis, which was noted in his back. Social History - Alcohol use: Occasional, approximately once a week [facility] Medical History (Updated 01/04/25 @ 16:26 by Sammie Cote PA-C) Arthritis Vascular calcification Inguinal hernia Fatty liver Diverticulosis Kidney stones Sinus bradycardia Heart murmur Left flank pain Torn ligament Left ankle injury Pre-operative clearance Class 2 severe obesity with body mass index (BMI) of 35 to 39.9 with serious comorbidity GERD (gastroesophageal reflux disease) Hypothyroid Hypercholesteremia Surgical History History of colonoscopy (~02/06/18) Family History Father DVT (deep venous thrombosis) Mother Breast cancer Social History Housing: House Alcohol intake: current Alcohol intake frequency: holidays/special occasions only Patient Tobacco Use Status: Former Tobacco user service: No Current occupational status: employed Cognitive needs: No Hearing needs: No Vision needs: Yes (reading glasses) Questionnaire PHQ-9 Over the last 2 weeks, how often have you been bothered by any of the following problems? 1. Little interest or pleasure in doing things: not at all 2. Feeling down, depressed, or hopeless: not at all 3. Trouble falling or staying asleep, or sleeping too much: not at all 4. Feeling tired or having little energy: not at all 5. Poor appetite or overeating: not at all 6. Feeling bad about yourself - or that you are a failure or have let yourself or your family down: not at all 7. Trouble concentrating on things, such as reading the newspaper or watching television: not at all 8. Moving or speaking so slowly that other people could have noticed. Or the opposite - being so fidgety or restless that you have been moving around a lot more than usual: not at all 9. Thoughts that you would be better off or of hurting yourself in some way: not at all Total score: 0 Depression Screening Interpretation: Negative Depression Screening Done: Yes 05428 - PHQ-9 Billing: Yes Source: Developed by Drs. Chico Still, Karolina Mei, Isaias Tejeda and colleagues, with an educational rosa maria from [employer]. Thrive Questionnaire Date Thrive assessed: 08/23/24 I am a: Patient What is your living situation today?: I have a steady place to live Within the past 12 months, did the food you bought not last and you didn't have the money to get more?: Never true Within the past 12 months, did you worry whether your food would run out before you got money to buy more?: Never true Do you have trouble paying for medicines?: No Do you have trouble getting transportation to medical appointments?: No Do you have trouble paying your heating and electricity bill?: No Do you have trouble taking care of your child, family member or friend?: No Do you have trouble with day-to-day activities such as bathing, preparing meals, shopping, managing finances, etc.?: No Are you currently unemployed and looking for a job?: No Are you interested in more education?: No Please select the resources that you would like help with: None THRIVE Score: 0 AUDIT C Alcohol Use Questionnaire (AUDIT-C) 1. How often do you have a drink containing alcohol?: Monthly or less 3. How often do you have six or more drinks on one occasion?: Never Total Score: 1 Score Reviewed/Action Taken: No EMANUEL-7 AMB Questionnaire EMANUEL-7 Date EMANUEL - 7 assessed: 08/23/24 Feeling nervous, anxious, or on edge: 0 = Not at all Not being able to stop or control worryin = Not at all Worrying too much about different things: 0 = Not at all Trouble relaxin = Not at all Being so restless that it is hard to sit still: 0 = Not at all Becoming easily annoyed or irritable: 0 = Not at all Feeling afraid as if something awful might happen: 0 = Not at all Total EMANUEL-7 score (0-4 normal; 5-9 mild; 10-14 moderate; 15-21 severe): 0 Source: Developed by Drs. Chico Still, Karolina Mei, Isaias Tejeda and colleagues, with an educational rosa maria from [employer]. EMANUEL-7 Assessment Billing EMANUEL-7 Assessment Tool: EMANUEL-7 Assessment 04354 Review of Systems Const Details: - Gastrointestinal: Reports left abdominal pain for three weeks. Denies nausea, vomiting, or fever. - Cardiovascular: Reports lightheadedness when transitioning from sitting to standing. Denies chest pain or palpitations. - Musculoskeletal: Reports no pain upon abdominal palpation. All systems reviewed & are unremarkable except as noted in HPI and below Physical exam (Primary Care) Vital Signs: Last Vital Signs Temp 98.2 F 01/04/25 15:39 Pulse 58 01/04/25 15:39 Resp 16 01/04/25 15:39 BP 148/73 H 01/04/25 15:39 Pulse Ox 99 01/04/25 15:39 Oxygen Delivery Method Room Air 01/04/25 15:39 Care Plan Goal for BP management: <140/90 at Goal BMI result Body Mass Index 35.0 BMI Assessment/Plan discussion: High BMI High, discussed plan: lifestyle, weight reduction, dietary, physical activity, alcohol moderation and other Tobacco/Smoking Status: Tobacco use Status Tobacco use date assessed 08/23/24 01/04/25 15:46 Patient Tobacco Use Status Former Tobacco user 01/04/25 15:46 PHQ-9: PHQ-9 Score PHQ-9: Total score 0 01/04/25 15:46 Depression Screening Interpretation: Negative Thrive Assessment: Date of Thrive Assessment Date Thrive assessed 08/23/24 01/04/25 15:46 Const Other: Appearance: Alert. Oriented X3. No acute distress. Head: Normal external exam. Normocephalic. Atraumatic. Eyes: Pupils are equal, round, and reactive to light. Extraocular movements intact. Conjunctiva and sclera normal. Eyelids normal. Throat: Pharynx normal. Uvula midline. Moist mucous membranes. Neck: Normal inspection. Neck supple. Full range of motion. Cardiovascular: Bradycardia noted. Heart sound normal. Murmur present. Pulses normal throughout. Respiratory: No respiratory distress. Painless inspiration. Breath sounds normal. No wheezes/rales/rhonchi noted. Chest nontender. No accessory muscle usage noted or decreased air movement noted. Abdomen: Tenderness in the left upper abdomen/left flank noted. Soft. Bowel sounds normal in all 4 quadrants. No distention noted. No organomegaly noted. No visible injury noted. Back: No costovertebral angle tenderness. Full range of motion noted. Arthritis noted. Skin: Skin warm and dry. Normal skin color. Normal skin turgor. No rashes/lesions/lacerations noted. Extremities: Extremities exhibit normal range of motion. Extremities nontender. Neuro: Oriented X 3. No motor deficit. No sensory deficit. Reflexes normal. Lightheadedness reported when walking. Results Reviewed Results Reviewed: - Imaging: Previous CT scan revealed kidney stones, diverticulosis, fatty liver, vascular calcification, and inguinal hernia. Coding Level of Care Code Est Pt Level 4 (90094) Complex EM visit Add On G2211 Diagnoses Left flank pain R10.9 Sinus bradycardia R00.1 Kidney stones N20.0 Diverticulosis K57.90 Fatty liver K76.0 Inguinal hernia K40.90 Vascular calcification I99.8 Arthritis M19.90 Additional Codes EMANUEL-7 Assessment Billing - EMANUEL-7 Assessment Tool: EMANUEL-7 Assessment 22782 ([id number]) PHQ-9 - 87760 - PHQ-9 Billing: Yes ([id number]) Assessment & Plan Assessment & Plan (1) Left flank pain: Code(s): R10.9 - Unspecified abdominal pain Category: Medical Plan: A repeat CT scan will be conducted to evaluate the cause of the left abdominal pain, considering the history of kidney stones and diverticulosis. The patient is advised to avoid alcohol and monitor for any exacerbation of symptoms, such as fever or changes in bowel habits, which would necessitate immediate medical attention. (2) Sinus bradycardia: Code(s): R00.1 - Bradycardia, unspecified Category: Medical Plan: A stress test, Holter monitor, and echocardiogram are planned to further evaluate the bradycardia and associated lightheadedness. The patient is also advised to monitor for any worsening of symptoms and to seek immediate care if significant dizziness or syncope occurs. (3) Kidney stones: Code(s): N20.0 - Calculus of kidney Category: Medical Plan: The patient will be referred to urology for further management of the kidney stones, and a repeat CT scan will be conducted to assess the current status of the stones. He is instructed to seek urgent care if symptoms such as fever, inability to urinate, or hematuria develop. (4) Diverticulosis: Code(s): K57.90 - Diverticulosis of intestine, part unspecified, without perforation or abscess without bleeding Category: Medical Plan: The patient is advised to monitor for symptoms of diverticulitis, such as fever, abdominal pain, or changes in bowel habits, and to seek medical attention if these occur. (5) Fatty liver: Code(s): K76.0 - Fatty (change of) liver, not elsewhere classified Category: Medical Plan: Lifestyle modifications, including dietary changes and alcohol avoidance, are recommended to manage fatty liver disease. (6) Inguinal hernia: Code(s): K40.90 - Unilateral inguinal hernia, without obstruction or gangrene, not specified as recurrent Category: Medical Plan: The patient is advised to monitor for any signs of hernia complications, such as increased pain or changes in bowel habits, and to seek medical attention if these occur. (7) Vascular calcification: Code(s): I99.8 - Other disorder of circulatory system Category: Medical Plan: The patient is advised to maintain blood pressure control and follow up with his primary care provider for ongoing management of vascular calcification. (8) Arthritis: Code(s): M19.90 - Unspecified osteoarthritis, unspecified site Category: Medical Plan: The patient is advised to continue any current management strategies for arthritis and to report any worsening of symptoms to his healthcare provider. Plan Plan Patient was informed and verbally consented to the use of an ambient scribe for clinic note documentation during this visit. 1. Left Abdominal Pain A repeat CT scan will be conducted to evaluate the cause of the left abdominal pain, considering the history of kidney stones and diverticulosis. The patient is advised to avoid alcohol and monitor for any exacerbation of symptoms, such as fever or changes in bowel habits, which would necessitate immediate medical attention. 2. Bradycardia A stress test, Holter monitor, and echocardiogram are planned to further evaluate the bradycardia and associated lightheadedness. The patient is also advised to monitor for any worsening of symptoms and to seek immediate care if significant dizziness or syncope occurs. 3. Kidney Stones The patient will be referred to urology for further management of the kidney stones, and a repeat CT scan will be conducted to assess the current status of the stones. He is instructed to seek urgent care if symptoms such as fever, inability to urinate, or hematuria develop. 4. Diverticulosis The patient is advised to monitor for symptoms of diverticulitis, such as fever, abdominal pain, or changes in bowel habits, and to seek medical attention if these occur. 5. Fatty Liver Lifestyle modifications, including dietary changes and alcohol avoidance, are recommended to manage fatty liver disease. 6. Inguinal Hernia The patient is advised to monitor for any signs of hernia complications, such as increased pain or changes in bowel habits, and to seek medical attention if these occur. 7. Vascular Calcification The patient is advised to maintain blood pressure control and follow up with his primary care provider for ongoing management of vascular calcification. 8. Arthritis The patient is advised to continue any current management strategies for arthritis and to report any worsening of symptoms to his healthcare provider. During the visit, I discussed with the patient the findings of his previous CT scan, which revealed kidney stones, diverticulosis, fatty liver, vascular calcification, and an inguinal hernia. We reviewed the plan for further evaluation of his left abdominal pain and bradycardia, including a repeat CT scan, stress test, Holter monitor, and echocardiogram. I advised the patient to avoid alcohol and monitor for any exacerbation of symptoms, such as fever or changes in bowel habits, which would necessitate immediate medical attention. Orders: Orders Complete Blood Count Auto Diff Today Z00.00 - Encounter for general adult medical examination without abnormal findings Magnesium Today Z00.00 - Encounter for general adult medical examination without abnormal findings CT abdomen pelvis wo IV con Today R10.9 - Unspecified abdominal pain CA echo transthoracic complete Today R01.1 - Cardiac murmur, unspecified ECG 3 day holter monitor Today R01.1 - Cardiac murmur, unspecified Lipase Today R10.9 - Unspecified abdominal pain Comprehensive Met. Panel Today Z00.00 - Encounter for general adult medical examination without abnormal findings CA stress test Today R01.1 - Cardiac murmur, unspecified NM cardiolite stress test Today I51.89 - Other ill-defined heart diseases Lyme IgG/IgM w/reflex to WB Today Z00.00 - Encounter for general adult medical examination without abnormal findings Amylase Today R10.9 - Unspecified abdominal pain Patient Instructions: - Avoid alcohol and monitor for any exacerbation of symptoms, such as fever or changes in bowel habits. - Seek urgent care if symptoms such as fever, inability to urinate, or hematuria develop. - Follow up with urology for kidney stones management. - Attend scheduled tests, including CT scan, stress test, Holter monitor, and echocardiogram.
[2025-01-04 16:22] VITALS: BP 122/71
--- OUTSIDE RECORDS SUMMARY | 2025-01-04 16:29 | XMS_ITS | Encounter Summary ---
Author Organization [facility] Address [address] [place] [address] Care Team Providers Care Chief Juvenile Probation Officer Name Role Phone Pcp, No Primary Care Provider Unavailabl e Encounter Details Date Type Department Care Team (Late st Contact Info) Description 09/08/2024 [place] [address] Milad Mao MD [address] [place] [address] Social History Tobacco Use Types Packs/Day Years [...] Care Team (Late st Contact Info) Description 02/22/2025 3:45 PM EDT Office Visit Orthopedic [address] [address] Milad Mao MD [address] [place] [address] documented as of this encounter Visit Diagnoses Not on filedocumented in this encounter Care Teams Chief Juvenile Probation Officer Relationship Specialty Start Date End Date Pcp, No PCP - General General Medicine 08/10/24 documented as of this encounter
--- OUTSIDE RECORDS SUMMARY | 2025-01-04 16:29 | XMS_ITS | Clinical Summary ---
Author Organization [facility] Address [address] [place] [address] Care Team Providers Care Potato Inspector Name Role Phone Pcp, No Primary Care Provider Unavailabl e Allergies No known active allergies Medications acetaminophen (TYLENOL) 500 MG tabletIndication s:Left ankle pain, unspecified chronicity Take 1 tablet (500 mg total) by mouth 4 times daily (every 6 hours) as needed for mild pain or moderate pain. 84 tablet 5 Active aspirin enteric coated (ECOTRIN LOW STRENGTH) 81 MG EC tabletIndication s:Left ankle pain, unspecified chronicity Take 1 tablet (81 mg total) by mouth 2 times a day. With Food Post op 42 tablet 5 Active oxyCODONE (ROXICODONE) 5 MG immediate release tabletIndication s:Left ankle pain, unspecified chronicity Take 1 tablet (5 mg total) by mouth 4 times daily (every 6 hours) as needed for severe pain. Max Daily Amount: 20 mg 28 tablet 5 Active methocarbamol (ROBAXIN) 500 MG tabletIndication s:Left ankle pain, unspecified chronicity Take 1 tablet (500 mg total) by mouth 2 (two) times a day as needed for muscle spasms. 10 tablet 5 Active lidocaine (PROZENA) 4 % patchIndications :Left ankle pain, unspecified chronicity Place 1 patch on the skin daily. 30 patch 1 5 Active Active Problems No known active problems Encounters Date Type Department Care Team Description 12/28/2024 3:15 PM EDT [facility] Visit [facility] [address] [place] [address] Fariha Emmanuel APRN Instability of ankle joint, left (Primary Dx); Left ankle pain, unspecified chronicity 11/16/2024 3:30 PM EDT Office Visit [facility] [address] Fariha Emmanuel APRN Instability of ankle joint, left (Primary Dx) 10/19/2024 1:00 PM EDT Office [place] [facility] [address] Fariha Emmanuel APRN Left ankle pain, unspecified chronicity (Primary Dx); Instability of ankle joint, left from Last 3 Months Social History Tobacco Use Types Packs/Day Years Used Date Smoking Tobacco: Never Assessed Sex and Gender Information Value Date Recorded Sex Assigned at Male 08/04/2024 2:03 PM EDT Legal Sex Male 6:53 PM EST Gender Identity Male 08/04/2024 2:03 PM EDT Sexual Orientation Asexual 08/04/2024 2: 03 PM EDT Plan of Treatment Upcoming Encounters Date Type Department Care Team ([facility] st Contact Info) Description 02/22/2025 3:45 PM EDT [place] [address] Milad Mao MD [address] [place] [address] Health Maintenance Due Date Last Done Comments Hepatitis C Virus Screening 1965 HIV Screening 1978 DTaP/Tdap/Td Vaccines (1 - Tdap) 02/15/1984 Hepatitis B Vaccines (1 of 3 - 19+ 3-dose series) 02/02 Colonoscopy 2010 Pneumococcal Vaccines 50+ (1 of 1 - PCV) 2015 Zoster (Shingles) Vaccine (1 of 2) 2015 COVID-19 Vaccine (1 - season) 2024 Influenza Vaccine 12/03/2024 Insurance BLUE CROSS OUT OF STATE - PPO Care Teams Potato Inspector Relationship Specialty Start Date End Date Pcp, No PCP - General General Medicine 08/10/24
--- OUTSIDE RECORDS SUMMARY | 2025-01-04 16:29 | XMS_ITS ---
Author Name [facility] Organization Unknown History of Medication Use Medication Directions Dispensed Refills Start Date End Date Stat us lidocaine (PROZENA) 4 % patch Place 1 patch on the skin daily. 12/28/2024 active acetaminophen (TYLENOL) 500 MG tablet Take 1 tablet (500 mg total) by mouth 4 times daily (every 6 hours) as needed for mild pain or moderate pain. 09/01/2024 active aspirin enteric coated (ECOTRIN LOW STRENGTH) 81 MG EC tablet Take 1 tablet (81 mg total) by mouth 2 times a day. With Food Post op 09/01/2024 active methocarbamol (ROBAXIN) 500 MG tablet Take 1 tablet (500 mg total) by mouth 2 (two) times a day as needed for muscle spasms. 09/01/2024 active oxyCODONE (ROXICODONE) 5 MG immediate release tablet Take 1 tablet (5 mg total) by mouth 4 times daily (every 6 hours) as needed for severe pain. Max Daily Amount: 20 mg 09/01/2024 active Problems Problem Status Onset Date Problem Type Date of Resoluti on Source Left ankle pain, unspecified chronicity active [facility] ankle joint, left active [facility] Encounters Encounter Type Encounter Reason Primary Diagnosis Location Date Ambulatory Other instability, left ankle Other instability, left ankle [facility] 12/28/2024 Ambulatory Other instability, left ankle Other instability, left ankle [facility] 11/16/2024 Ambulatory [facility] 10/19/2024 Ambulatory Pain in left ankle and joints of left foot Pain in left ankle and joints of left foot [facility] 10/19/2024 Ambulatory [facility] 09/28/2024 Ambulatory Pain in left ankle and joints of left foot Pain in left ankle and joints of left foot [facility] 09/28/2024 Ambulatory Pain in left ankle and joints of left foot Pain in left ankle and joints of left foot [email or web address] 09/14/2024 Ambulatory [facility] Peroneal tendinitis, left leg [facility] 09/08/2024 Ambulatory 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
== END 2025-01-04 16:06 | disposition home or self-care (01) ==
LOC: HO.HMCSH 15:29
PROVIDERS: PCP Internal Medicine; Visit Provider Physician Assistant Medical
DX: R10.9 Unspecified abdominal pain (principal); R00.1 Bradycardia, unspecified; N20.0 Calculus of kidney; K57.90 Diverticulosis of intestine, part unspecified, without perforation or abscess without bleeding; K76.0 Fatty (change of) liver, not elsewhere classified; K40.90 Unilateral inguinal hernia, without obstruction or gangrene, not specified as recurrent; I99.8 Other disorder of circulatory system; M19.90 Unspecified osteoarthritis, unspecified site

== ENCOUNTER → 2025-01-04 15:29 | Outpatient (BNVA) | payer BC, SELFPAY | PROVIDERS: PCP Internal Medicine; Visit Provider Physician Assistant Medical | DX: M54.2 Cervicalgia (principal); R10.9 Unspecified abdominal pain; R00.1 Bradycardia, unspecified; R42 Dizziness and giddiness; K57.90 Diverticulosis of intestine, part unspecified, without perforation or abscess without bleeding; K76.0 Fatty (change of) liver, not elsewhere classified; K40.90 Unilateral inguinal hernia, without obstruction or gangrene, not specified as recurrent; I99.8 Other disorder of circulatory system; M19.90 Unspecified osteoarthritis, unspecified site; R01.1 Cardiac murmur, unspecified; I51.89 Other ill-defined heart diseases; Z87.442 Personal history of urinary calculi | CPT/HCPCS: 96127 ==

== ENCOUNTER 2025-01-21 09:24 | Outpatient (REF) | payer BC, SELFPAY ==
--- NOTE | ~2025-01-21 | CT_ITS ---
EXAMINATION: CT ABDOMEN PELVIS WITHOUT IV CONTRAST HISTORY: R10.9 - Unspecified abdominal pain COMPARISON: There are no prior studies available for comparison. TECHNIQUE: CT scan of the abdomen and pelvis was performed without contrast using standard departmental protocol. Coronal and sagittal reformatted images were generated and reviewed. Oral contrast material was not administered at the request of the referring physician. This CT exam was performed with one or more of the following dose reduction techniques: automated exposure control, adjustment of the mA and/or kV according to patient size, use of iterative reconstruction technique. DLP: 655 mGy-cm FINDINGS: LOWER CHEST: The visualized lung bases are clear. There is no pleural effusion. CARDIOVASCULATURE: The heart is normal in size. There is no pericardial effusion. LIVER: The liver is normal in size and contour. The liver has an unremarkable unenhanced appearance. GALLBLADDER / BILE DUCTS: The gallbladder is unremarkable. There is no intra or extrahepatic biliary ductal dilatation. SPLEEN: The spleen is normal in size and has an unremarkable unenhanced appearance. PANCREAS: The pancreas has an unremarkable unenhanced appearance. ADRENAL GLANDS: Unremarkable. KIDNEYS/RETROPERITONEUM: No renal calculi are identified. There is no hydronephrosis. LYMPH NODES: No retroperitoneal lymphadenopathy is identified in the abdomen or pelvis. VASCULATURE: The abdominal aorta is normal in caliber. MESENTERY/PERITONEUM: No free fluid. No masses. There is no free intraperitoneal gas. STOMACH: The stomach is unremarkable. SMALL BOWEL: The small bowel is normal in caliber. COLON: There is a moderate amount of stool throughout the colon. APPENDIX: Normal. URINARY BLADDER/PELVIC ORGANS: The urinary bladder is unremarkable. The prostate is normal in size. BONES / SOFT TISSUES: No suspicious bony or soft tissue abnormalities. CT/CT abdomen pelvis wo IV con IMPRESSION: Moderate amount of stool throughout the colon. Otherwise unremarkable unenhanced CT of the abdomen and pelvis. Electronically signed by: Chico Willis MD 01/21/2025 10:14 AM EDT
[2025-01-21 09:34] LABS: MANUAL DIFF FLAG NO
--- OUTSIDE RECORDS SUMMARY | 2025-01-21 09:58 | XMS_ITS | Encounter Summary ---
Author Organization [facility] Address [address] [place] [address] Care Team Providers Care Energy Trader Name Role Phone Pcp, No Primary Care Provider Unavailabl e Encounter Details Date Type Department Care Team (Late st Contact Info) Description 09/08/[address] [place] [address] Milad Mao MD [address] [place] [address] Social History Tobacco Use Types Packs/Day Years [...] 02/22/2025 3:45 PM EDT Office Visit Orthopedic [address] [address] Milad Mao MD [address] [place] [address] documented as of this encounter Visit Diagnoses Not on filedocumented in this encounter Care Teams Energy Trader Relationship Specialty Start Date End Date Pcp, No PCP - General General Medicine 08/10/24 documented as of this encounter
--- OUTSIDE RECORDS SUMMARY | 2025-01-21 09:58 | XMS_ITS | Clinical Summary ---
Author Organization [facility] Address [address] [place] [address] Care Team Providers Care Cable Tool Operator Name Role Phone Pcp, No Primary Care [...] PM EDT [facility] Visit [facility] [address] [place] [address] Fariha Emmanuel APRN Instability of ankle joint, left (Primary Dx); Left ankle pain, unspecified chronicity 11/16/2024 3:30 PM EDT Office Visit [facility] [place] [address] Fariha Emmanuel APRN Instability of ankle joint, left (Primary Dx) from Last 3 Months Social [...] Upcoming Encounters Date Type Department Care Team ([facility] st Contact Info) Description 02/22/2025 3:45 PM EDT Office Visit Orth[facility] [address] [address] Milad Mao MD [address] [place] [address] Health Maintenance Due Date Last Done Comments Hepatitis C Virus Screening 1965 HIV Screening 1978 DTaP/Tdap/Td Vaccines (1 - Tdap) 02/15/1984 Hepatitis B Vaccines (1 of 3 - 19+ 3-dose series) 02/02 Colonoscopy 2010 Pneumococcal Vaccines 50+ (1 of 1 - PCV) 2015 Zoster (Shingles) Vaccine (1 of 2) 2015 Influenza Vaccine 12/03/2024 COVID-19 Vaccine (1 - 2023- season) 2025 Insurance [facility] - PPO Care Teams Cable Tool Operator Relationship Specialty Start Date End Date Pcp, No PCP - General General Medicine 08/10/24
[2025-01-21 10:07] LABS: Hematocrit 41.2 % (42.0-52.0); Hemoglobin 14.8 g/dl (14.0-18.0); Imm Gran Abs Auto 0.02 X10*3/uL (0.00-0.03); Imm Gran Pct Auto 0.3 % (0.0-0.4); Lymphocytes Absolute Auto 2.3 X10*3/uL (1.2-4.9); Mean Corpuscular HGB Conc 35.9 g/dl (31.0-36.0); Mean Corpuscular Hemoglobin 31.4 pg (27.0-33.0); Mean Corpuscular Volume 87.3 fL (80.0-98.0); NRBC Abs Auto 0.000 X10*3/uL (0.0-0.012); NRBC Pct Auto 0.0 /100WBC (0.0-0.2); Platelet Count 151 X10*3/uL (160-400); Red Blood Count 4.72 X10*6/uL (4.60-5.80); White Blood Count 6.9 X10*3/uL (4.8-10.8)
[2025-01-21 11:17] LABS: Alanine Aminotransferase 30 U/L (0-40); Albumin Level 4.3 g/dL (3.5-5.0); Alkaline Phosphatase 70 U/L (39-117); Anion Gap 10 (12-20); Aspartate Amino Transferase 26 U/L (5-37); Blood Urea Nitrogen 13 mg/dL (9-16); Calcium 9.4 mg/dL (8.4-10.2); Carbon Dioxide 32 mmol/L (22-29); Chloride 104 mmol/L (96-108); Estimated Glomerular Filt Rate > 60; Lipase 30 U/L (8-78); Magnesium 2.0 mg/dL (1.6-2.6); Potassium 3.6 mmol/L (3.3-5.1); Sodium 142 mmol/L (135-145); Total Protein 7.2 g/dL (6.5-8.0)
[2025-01-21 11:25] LABS: Amylase 50 U/L (28-100)
[2025-01-22 12:24] LABS: Lyme Abs Screen <0.90 index
== END 2025-01-21 09:25 | disposition home or self-care (01) ==
LOC: HO.CT 09:24
PROVIDERS: PCP Internal Medicine; Visit Provider Physician Assistant Medical
DX: R10.9 Unspecified abdominal pain (principal); Z00.00 Encounter for general adult medical examination without abnormal findings
CPT/HCPCS: 36415; 74176; 80053; 82150; 83690; 83735; 85025; 86617; 86618

== ENCOUNTER → 2025-01-21 09:34 | Outpatient (BNV) | payer BC, SELFPAY | PROVIDERS: PCP Internal Medicine; Visit Provider Radiology Diagnostic Radiology | DX: R10.9 Unspecified abdominal pain (principal); K59.00 Constipation, unspecified | CPT/HCPCS: 74176 ==